=== PATIENT | female | born 2000 | race Hispanic/Latino ===

== ENCOUNTER 2019-10-26 19:43 | Emergency (ER) | payer OTHER ==
[~2019-10-26] VITALS: Ht 165.1 cm; Wt 96.2 kg
--- OUTSIDE RECORDS SUMMARY | 2019-10-26 19:46 | XMS REPORT ---
Author Author Admin, [place] Organization [facility] Address [address] [place] [address] Phone Allergies, Adverse Reactions, Alerts Allergy Name Reaction Description Start Date Severity Status Provider No Known Allergies Adela Manjeet CORN PICKER Conditions or Problems Problem Name Problem Code Onset Date Status Entry Date Provider Comment Standard Description Annotate Screening visit for sexually trans dis V74.5 Active Leilani Moncada MD Screening examination for venereal disease annually - summer Elevated hemoglobin 790.99 Active Leilani Moncada MD Other nonspecific findings on examination of blood on T - following Acne vulgaris, facial, mild 706.1 Active Leilani Moncada MD Other acne retin a Dietary surveillance/counseling V65.3 Active Leilani Moncada MD Dietary surveillance and counseling Exercise counseling V65.41 Active Leilani Moncada MD Exercise counseling Vitamin D deficiency 268.9 Active Leilani Moncada MD Unspecified vitamin D deficiency 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 Leilani Moncada MD Body Mass Index, pediatric, greater than or equal to 95th percentile for age Disorder, 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 Leilani Moncada MD Unspecified endocrine disorder transmale Weight gain, abnormal 783.1 Active Leilani Moncada MD Abnormal weight gain DEPRESSIVE DISORDER, MAJOR, SINGLE EPISODE, MILD Active Lavern SHABAZZW-S Major depressive disorder, single episode, mild degree GENDER DYSPHORIA, ADOLESCENTS AND ADULTS Active 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 Costochondritis, left ICD-733.6 Inactive Leilani Moncada MD Screening visit for sexually trans dis V74.5 Inactive Leilani Moncada MD Screening examination for venereal disease Screening visit for sexually trans dis ICD-V74.5 Inactive Leilani Moncada MD Vaccination ICD-V05.9 Inactive Leilani Moncada MD Immunization due ICD-V15.83 Inactive Leilani Moncada MD Costochondritis, left 733.6 Resolved 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 V05.9 Resolved Leilani Moncada MD Need for prophylactic vaccination and inoculation against unspecified single disease Immunization due V15.83 Resolved Leilani Moncada MD Personal history of underimmunization status Medication List Medication Instructions Start Date Stop Date Generic Name NDC Status Provider Patient Instruction ADAPALENE 0.1 % EXTERNAL CREAM small green Pea to face nightly ADAPALENE 03797512099 Active Leilani Moncada MD Active TESTOSTERONE CYPIONATE 200 MG/ML INTRAMUSCULAR SOLUTION 0.4cc SQ weekly TESTOSTERONE CYPIONATE 00880555863 Active Leilani Moncada MD Active EPIDUO 0.1-2.5 % EXTERNAL GEL to clean dry face nightly EPIDUO 0.1-2.5 % EXTERNAL GEL 386995 ADAPALENE-BENZOYL PEROXIDE Inactive BENZACLIN WITH PUMP 1-5 % EXTERNAL GEL apply to clean face every morning BENZACLIN WITH PUMP 1-5 % EXTERNAL GEL 273735 CLINDAMYCIN PHOS-BENZOYL PEROX Inactive VITAMIN D (ERGOCALCIFEROL) 42500 UNIT ORAL CAPSULE One tablet by mouth once per week for 12 weeks VITAMIN D (ERGOCALCIFEROL) 59755 UNIT ORAL CAPSULE 0715527 ERGOCALCIFEROL Inactive RETIN-A 0.025 % EXTERNAL GEL to clean dry face nightly RETIN-A 0.025 % EXTERNAL GEL 841308 TRETINOIN Inactive EPIDUO 0.1-2.5 % EXTERNAL GEL to clean dry face nightly ADAPALENE-BENZOYL PEROXIDE 84561185777 No Longer Active Leilani Moncada MD Active BENZACLIN WITH PUMP 1-5 % EXTERNAL GEL apply to clean face every morning CLINDAMYCIN PHOS-BENZOYL PEROX 71304995399 No Longer Active Leilani Moncada MD Active VITAMIN D (ERGOCALCIFEROL) 16087 UNIT ORAL CAPSULE One tablet by mouth once per week for 12 weeks ERGOCALCIFEROL 97741613237 No Longer Active Leilani Moncada MD Active RETIN-A 0.025 % EXTERNAL GEL to clean dry face nightly TRETINOIN 05675177037 No Longer Active Leilani Moncada MD Active Immunizations Vaccine Administration Date Value Standard Description influenza immunization (Flu Vax) has been administered given influenza virus vaccine, unspecified formulation influenza immunization (Flu Vax) has been administered given influenza virus vaccine, unspecified formulation influenza immunization (Flu Vax) has been administered transcribed from official record influenza virus vaccine, unspecified formulation meningococcal polysaccharide conjugate vaccine (MCV4) #2 transcribed from official record meningococcal vaccine, unspecified formulation Human Papillomavirus vaccine (Gardasil) #3, (HPV #3) transcribed from official record human papilloma virus vaccine, quadrivalent Human Papillomavirus vaccine (Gardasil) #3, (HPV #3) Drug Name Unknown human papilloma virus vaccine, quadrivalent Tetanus toxoid, reduced diphtheria toxoid and acellular Pertussis vaccine, absorbed (TdaP) given transcribed from official record tetanus toxoid, reduced diphtheria toxoid, and acellular pertussis vaccine, adsorbed Human Papillomavirus vaccine (Gardasil) #2, (HPV #2) transcribed from official record human papilloma virus vaccine, quadrivalent Human Papillomavirus vaccine (Gardasil) #2, (HPV #2) Drug Name Unknown human papilloma virus vaccine, quadrivalent chicken pox immunization #2 transcribed from official record varicella virus vaccine meningococcal polysaccharide conjugate vaccine (MCV4) transcribed from official record meningococcal vaccine, unspecified formulation Human Papilloma Virus Vaccine (Gardasil) (HPV 1) Administration Date transcribed from official record human papilloma virus vaccine, quadrivalent chicken pox immunization #1 transcribed from official record varicella virus vaccine DTaP (Diphtheria, Tetanus, and acellular Pertussis) immunization #5 transcribed from official record diphtheria, tetanus toxoids and acellular pertussis vaccine MMR (measles, mumps, rubella) virus immunization #2 transcribed from official record polio vaccine #4 transcribed from official record poliovirus vaccine, inactivated hepatitis A immunization #2 transcribed from official record hepatitis A vaccine, unspecified formulation DTaP (Diphtheria, Tetanus, and acellular Pertussis) immunization #4 transcribed from official record diphtheria, tetanus toxoids and acellular pertussis vaccine hepatitis A immunization #1 transcribed from official record hepatitis A vaccine, unspecified formulation hepatitis B vaccine #3 transcribed from official record hepatitis B vaccine, unspecified formulation hepatitis B vaccine #2 given transcribed from official record hepatitis B vaccine, unspecified formulation DTaP (Diphtheria, Tetanus, and acellular Pertussis) immunization #3 transcribed from official record diphtheria, tetanus toxoids and acellular pertussis vaccine Hemophilus influenza B immunization #4 transcribed from official record Haemophilus influenzae type b vaccine, conjugate unspecified formulation MMR (measles, mumps, rubella) virus immunization #1 transcribed from official record DTaP (Diphtheria, Tetanus, and acellular Pertussis) immunization #2 transcribed from official record diphtheria, tetanus toxoids and acellular pertussis vaccine Hemophilus influenza B immunization #3 transcribed from official record Haemophilus influenzae type b vaccine, conjugate unspecified formulation hepatitis B vaccine #1 given transcribed from official record hepatitis B vaccine, unspecified formulation polio vaccine #3 transcribed from official record poliovirus vaccine, inactivated DTaP (Diphtheria, Tetanus, and acellular Pertussis) immunization #1 transcribed from official record diphtheria, tetanus toxoids and acellular pertussis vaccine Hemophilus influenza B immunization #2 transcribed from official record Haemophilus influenzae type b vaccine, conjugate unspecified formulation polio vaccine #2 transcribed from official record poliovirus vaccine, inactivated Hemophilus influenza B immunization #1 transcribed from official record Haemophilus influenzae type b vaccine, conjugate unspecified formulation polio vaccine #1 transcribed from official record poliovirus vaccine, inactivated Vital Signs Date Name Value Unit Range Description blood pressure, diastolic 63 mm[Hg] BP kwong blood pressure, systolic 107 mm[Hg] BP sys height E&M 63.27 [in_us] Bdy height pulse rate E&M 67 /min Heart rate temperature E&M 99.2 [degF] Body temperature weight E&M 197.34 [lb_av] Weight Measured blood pressure, diastolic 62 mm[Hg] BP kwong blood pressure, systolic 113 mm[Hg] BP sys height E&M 62.91 [in_us] Bdy height pulse rate E&M 69 /min Heart rate temperature E&M 98.2 [degF] Body temperature weight E&M 171.60 [lb_av] Weight Measured Diagnostic Results Date Name Value Unit Range Description Lab Report: TSH+Free T4, CBC With Differential/Platelet, Comp. Metabolic ... - Chemistry thyroid stimulating hormone, serum 1.520 u[iU]/mL 0.450-4.500 Lab Report: Comp. Metabolic Panel (14), CBC, Platelet, No Differential, ... - Chemistry very low density lipoproteins 15 mg/dL 5-40 testosterone, total 339 ng/dL chloride, serum 102 mmol/L 96-106 urea nitrogen, blood 11 mg/dL 6-20 Lab Report: Comp. Metabolic Panel (14), CBC, Platelet, No Differential, ... - Hematology mean corpuscular hemoglobin concentration, RBC 32.6 G/DL % 31.5-35.7 erythrocyte (RBC) count 4.95 X10E6/UL 10*6/mm3 3.77-5.28 Lab Report: RPR, Rfx Qn RPR/Confirm TP, Panel [id number], HCV Antibody - Serology hepatitis C antibody, serum <0.1 0.0-0.9 Lab Report: CBC With Differential/Platelet, RPR, Rfx Qn RPR/Confirm TP, ... - Chemistry Absolute Neutrophils 3.4 X10E3/UL 10*3/uL 1.4-7.0 Lab Report: Comp. Metabolic Panel (14), CBC, Platelet, No Differential, ... - Chemistry LDL cholesterol, serum 75 mg/dL 0-109 urea nitrogen/creatinine ratio, serum 14 9-23 Lab Report: Comp. Metabolic Panel (14), CBC, Platelet, No Differential, ... 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 Metabolic Panel (14), CBC, Platelet, No Differential, ... - Chemistry HDL cholesterol, serum 57 mg/dL >39 Lab Report: CBC With Differential/Platelet, RPR, Rfx Qn RPR/Confirm TP, ... - Hematology monocytes as percent of blood leukocytes 8 % Not Estab. Lab Report: Comp. Metabolic Panel (14), CBC, Platelet, No Differential, ... - Chemistry creatinine, serum 0.81 mg/dL 0.57-1.00 albumin/globulin ratio, serum 2.0 1.2-2.2 cholesterol, serum 147 mg/dL 977-253 9591/06/15 bilirubin, serum, total 0.5 mg/dL 0.0-1.2 Lab Report: CBC With Differential/Platelet, RPR, Rfx Qn RPR/Confirm TP, ... - Hematology Eosinophil Absolute Count 0.1 X10E3/UL 10*3/uL 0.0-0.4 Lab Report: Chlamydia/GC Amplification, Ct/GC LIZBETH, Pharyngeal - Lab chlamydia DNA probe Negative Negative Lab Report: Comp. Metabolic Panel (14), CBC, Platelet, No Differential, ... - Chemistry aspartate aminotransferase (SGOT), serum 16 U/L 0-40 Lab Report: Comp. Metabolic Panel (14), CBC, Platelet, No Differential, ... - Hematology red blood cell distribution width 13.6 % 12.3-15.4 leukocyte count, blood 5.6 X10E3/UL 10*3/mm3 3.4-10.8 Lab Report: Comp. Metabolic Panel (14), CBC, Platelet, No Differential, ... - Chemistry potassium, serum 4.7 mmol/L 3.5-5.2 Lab Report: Chlamydia/GC Amplification, Ct/GC LIZBETH, Pharyngeal - Microbiology Neisseria gonorrhoeae, throat culture Negative Negative Lab Report: Comp. Metabolic Panel (14), CBC, Platelet, No Differential, ... - Chemistry albumin, serum 4.7 g/dL 3.5-5.5 Lab Report: CBC With Differential/Platelet, RPR, Rfx Qn RPR/Confirm TP, ... - Chemistry immature granulocytes, percentage of total cells, blood 0 % Not Estab. Lab Report: CBC With Differential/Platelet, RPR, Rfx Qn RPR/Confirm TP, ... - Hematology lymphocyte count, blood, automated 1.9 X10E3/UL 10*3/mm3 0.7-3.1 Lab Report: Chlamydia/GC Amplification, Ct/GC LIZBETH, Pharyngeal - Microbiology Neisseria gonorrhoeae DNA probe Negative Negative Lab Report: Comp. Metabolic Panel (14), CBC, Platelet, No Differential, ... - Hematology hematocrit, blood 48.1 % 34.0-46.6 Lab Report: Comp. Metabolic Panel (14), CBC, Platelet, No Differential, ... - Chemistry sodium, serum 143 mmol/L 134-144 Lab Report: CBC With Differential/Platelet, RPR, Rfx Qn RPR/Confirm TP, ... - Hematology neutrophils as percent of blood leukocytes 58 % Not Estab. basophils as percent of blood leukocytes 1 % Not Estab. Lab Report: RPR, Rfx Qn RPR/Confirm TP, Panel [id number], HCV Antibody - Serology rapid plasma reagin antibody, serum Non Reactive Non Reactive Lab Report: Comp. Metabolic Panel (14), CBC, Platelet, No Differential, ... - Chemistry carbon dioxide, venous blood 28 mmol/L 20-29 triglyceride, serum, fasting 73 mg/dL 0-89 calcium, serum 9.4 mg/dL 8.7-10.2 alanine aminotransferase (SGPT), serum 10 U/L 0-32 Lab Report: Comp. Metabolic Panel (14), CBC, Platelet, No Differential, ... - Hematology mean corpuscular hemoglobin, RBC 31.7 pg 26.6-33.0 Lab Report: Comp. Metabolic Panel (14), CBC, Platelet, No Differential, ... - Chemistry protein, total, serum 7.1 g/dL 6.0-8.5 alkaline phosphatase, serum 64 U/L 39-117 Lab Report: Comp. Metabolic Panel (14), CBC, Platelet, No Differential, ... - Hematology hemoglobin, blood 15.7 g/dL 11.1-15.9 Lab Report: CBC With Differential/Platelet, RPR, Rfx Qn RPR/Confirm TP, ... - Hematology lymphocytes as percent of blood leukocytes 32 % Not Estab. Lab Report: TSH+Free T4, CBC With Differential/Platelet, Comp. Metabolic ... - Chemistry hemoglobin A1C, blood, as % of total hemoglobin 5.3 % 4.8-5.6 Lab Report: Comp. Metabolic Panel (14), CBC, Platelet, No Differential, ... - Genetics/fertility eGFR if 122 mL/min/1.73m2 >59 Lab Report: CBC With Differential/Platelet, RPR, Rfx Qn RPR/Confirm TP, ... - Hematology basophil count, absolute 0.0 x10E3/uL 0.0-0.2 Lab Report: TSH+Free T4, CBC With Differential/Platelet, Comp. Metabolic ... - Chemistry thyroxine, serum, free 1.00 ng/dL 0.93-1.60 Lab Report: Comp. Metabolic Panel (14), CBC, Platelet, No Differential, ... - Chemistry globulin, serum 2.4 1.5-4.5 Estimated Glomerular Filtration Rate (calc) 106 mL/min/1.73m2 >59 Lab Report: Testosterone, Serum, Vitamin D, 25-Hydroxy - Chemistry vitamin D 25-hydroxy, serum 30.7 ng/mL 30.0-100.0 Lab Report: TSH+Free T4, CBC With Differential/Platelet, Comp. Metabolic ... - Chemistry testosterone, serum, free 2.8 pg/mL Not Estab. Lab Report: CBC With Differential/Platelet, RPR, Rfx Qn RPR/Confirm TP, ... - Hematology eosinophils as percent of blood leukocytes 1 % Not Estab. Lab Report: Comp. Metabolic Panel (14), CBC, Platelet, No Differential, ... - Chemistry blood glucose, random 94 mg/dL 65-99 Lab Report: CBC With Differential/Platelet, RPR, Rfx Qn RPR/Confirm TP, ... - Hematology monocyte count, blood, automated 0.5 X10E3/UL 10*3/uL 0.1-0.9 Lab Report: Comp. Metabolic Panel (14), CBC, Platelet, No Differential, ... - Hematology platelet count 244 X10E3/UL 10*3/mm3 150-450 Encounters Date Encounter Provider Code Facility 17:09:17 CDT Est Patient Detailed - [id number] Leilani Moncada MD CPT-38343 [facility] 16:07:26 CDT Est Patient Detailed - [id number] Leilani Moncada MD CPT-84411 [facility] 11:41:08 CDT Est Patient Detailed - [id number] Leilani Moncada MD CPT-78809 [facility] 19:09:27 CDT Est Patient Comprehensive-[id number] Leilani Moncada MD CPT-60741 [facility] 13:36:15 PAYROLL ADMINISTRATOR Est Patient Detailed - [id number] Leilani Moncada MD CPT-74958 [facility] 09:27:01 CDT Est Patient Detailed - [id number] Leilani Moncada MD CPT-96569 [facility] 17:42:39 PAYROLL ADMINISTRATOR Est Patient Detailed - [id number] Leilani Moncada MD CPT-16932 [facility] 16:57:44 PAYROLL ADMINISTRATOR Est Patient Detailed - [id number] Leilani Moncada MD CPT-41550 [facility] 11:55:00 CDT Est Patient Comprehensive-[id number] Leilani Moncada MD CPT-70618 [facility] 08:46:50 CDT New Patient Complex - [id number] Leilani Moncada MD CPT-88832 [facility] Procedures Code Procedure Name Date Entry Date Standard Description CPT-97343 Venipuncture 13:09:51 CDT CPT-78524 BLOOD COUNT HEMOGLOBIN 11:41:06 CDT CPT-59190 INFLUENZA VACCINE QUADRIVALENT 3 YRS PLUS IM 13:36:17 PAYROLL ADMINISTRATOR CPT-73170 INFLUENZA VACCINE QUADRIVALENT 3 YRS PLUS IM 13:36:17 PAYROLL ADMINISTRATOR CPT-46603 INFLUENZA VACCINE QUADRIVALENT 3 YRS PLUS IM 16:59:03 PAYROLL ADMINISTRATOR CPT-85809 IM or SQ Injection 11:56:39 CDT CPT-77009 Psychotherapy 30 (16-37*) min - 30949 (with patient and/or family member) 16:09:05 CDT CPT-54770 Psychotherapy 45 (38-52*) min - 72509 (with patient and/or family member) 14:08:43 CDT [facility]-79009 Diagnostic evaluation (no medical) - 59256 14:38:44 CDT
--- OUTSIDE RECORDS SUMMARY | 2019-10-26 19:46 | XMS REPORT ---
Author Author Admin, [place] Organization Unknown Address Unknown Phone Unavailable PROBLEMS Condition Status Date Provider Notes Depressed mood active Leilani Moncada Flu vaccine active Leilani Moncada Screening visit for sexually trans dis active Leilani Moncada annually - summer Costochondritis, left completed - Leilani Moncada Screening visit for sexually trans dis completed - Leilani Moncada Elevated hemoglobin active Leilani Moncada on T - following Vaccination completed - Leilani Moncada Acne vulgaris, facial, mild active Leilani Moncada retin a Dietary surveillance/counseling active Leilani Moncada Exercise counseling active Leilani Moncada Immunization due completed - Leilani Moncada Vitamin D deficiency active Leilani Moncada BMI=> 95%ile for age active Leilani Moncada Weight gain, abnormal active Leilani Moncada Disorder, 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, ADOLESCENTS AND ADULTS active Lavern Mejia DEPRESSIVE DISORDER, MAJOR, SINGLE EPISODE, MILD active Lavern Mejia ENCOUNTERS Date Type Provider Location Encounter Diagnosis - Ambulatory Encounter Leilani Moncada [facility] Depressed mood - Ambulatory Encounter Leilani Moncada [facility] UNK - Ambulatory Encounter Rubina Robertson [facility] UNK - Ambulatory Encounter Leilani Moncada [facility] UNK - Ambulatory Encounter Leilani Amandayulissa Mckenna Christine [facility] Flu vaccine - Ambulatory Encounter Leilani [place]cada [facility] UNK - Ambulatory Encounter Leilani Garvey [facility] UNK - Ambulatory Encounter Rubina Robertson [facility] UNK - Ambulatory Encounter Leilani Moncada [facility] UNK - Ambulatory Encounter Leilani Moncada [facility] UNK - Ambulatory Encounter Leilani Moncada [facility] UNK - Ambulatory Encounter Leilani Moncada [facility] UNK - Ambulatory Encounter Daisy Garvey [facility] UNK - Ambulatory Encounter Leilani Moncada [facility] UNK - Ambulatory Encounter Leilani Burroughs [facility] Screening visit for sexually trans dis - Ambulatory Encounter Leilani Moncada [facility] Adult Medicine UNK - Ambulatory Encounter Leilani Moncada [facility] Adult Medicine UNK - Ambulatory Encounter Deonna Bryan [facility] Behavioral Health UNK - Ambulatory Encounter Leilani Garvey [facility] UNK - Ambulatory Encounter Leilani Moncada [facility] UNK - Ambulatory Encounter Leilani Moncada Rubina Robertson [facility] VaccinationCostochondritis, left - Ambulatory Encounter Leeann Fernandez [facility] UNK - Ambulatory Encounter Leilani Moncada [facility] UNK - Ambulatory Encounter Leilani Moncada [facility] UNK - Ambulatory Encounter Leilani Moncada [facility] UNK - Ambulatory Encounter Leilani Moncada [facility] UNK - Ambulatory Encounter Leilani Moncada [facility] UNK - Ambulatory Encounter Leilani Moncada [facility] UNK - Ambulatory Encounter Leilani Moncada [facility] UNK - Ambulatory Encounter Leilani Moncada [facility] UNK - Ambulatory Encounter Leilani Moncada [facility] UNK - [facility] Ambulatory Encounter Leilani Moncada [facility] UNK - Ambulatory Encounter Leilani Moncada [facility] UNK - Ambulatory [facility] - Ambulatory Encounter [facility] UNK - Ambulatory Encounter Leilani Moncada [facility] UNK - Ambulatory Encounter Leilani Garvey [facility] Costochondritis, left - Ambulatory Encounter Leeann Fernandez [facility] Adult Medicine UNK - Ambulatory Encounter Daisy Fernandez [facility] UNK - Ambulatory Encounter Deepak Livingston [facility] Air [employer]ic UNK - Ambulatory Encounter Leilani Livingston [facility] UNK - Ambulatory Encounter Daisy Otero [facility] UNK - Ambulatory Encounter Rubina Robertson [facility] UNK - Ambulatory Encounter Leilani Moncada [facility] Adult Medicine UNK - Ambulatory Encounter Leilani Moncada [facility] Adult Medicine UNK - [facility] Adult Medicine UNK - Ambulatory Encounter Leilani Valadez Rubina Marcelo [facility] Adult Medicine UNK - Ambulatory Encounter Courtney Ludwig [facility] Adult Medicine UNK - Ambulatory Encounter Courtney Ludwig [facility] Adult Medicine UNK - Ambulatory Encounter Leilani Moncada [facility] UNK - Ambulatory Encounter Leilani Burroughs [facility] Elevated hemoglobinScreening visit for sexually trans dis - Ambulatory Encounter Leeann Fernandez [facility] Adult Medicine UNK - Ambulatory Encounter Leilani Moncada [facility] UNK - Ambulatory Encounter Leilani Moncada [facility] UNK - Ambulatory Encounter Leilani Moncada [facility] UNK - Ambulatory Encounter Leilani Moncada [facility] UNK - Ambulatory Encounter Leilani Moncada [facility] UNK - Ambulatory Encounter Leilani Moncada [facility] UNK - Ambulatory Encounter Kristin Francois [facility] UNK - Ambulatory Encounter Kristin Francois [facility] UNK - Ambulatory Encounter Kristin Francois [facility] UNK - Ambulatory Encounter Leilani Moncada [facility] UNK - Ambulatory Encounter Leilani Moncada [facility] UNK - Ambulatory Encounter Leilani Moncada [facility] UNK - Ambulatory Encounter Leilani Ramírez Kristin Francois Yessina Derrell Kwon Chica [facility] Vaccination - Ambulatory Encounter Leeann Fernandez [facility] UNK - Ambulatory Encounter Leilani Moncada [facility] UNK - Ambulatory Encounter Leilani Moncada [facility] UNK - Ambulatory Encounter Leilani Moncada [facility] UNK - Ambulatory Encounter Leilani Cespedes Marcelo [facility] UNK - Ambulatory Encounter Leilani Moncada [facility] UNK - Ambulatory Encounter Daisy Garvey [facility] UNK - Ambulatory Encounter Leilani Moncada [facility] UNK - Ambulatory Encounter Leilani Hearti Rodrigez [facility] Exercise counselingDietary surveillance/counselingAcne vulgaris, facial, mild - Ambulatory Encounter Leilani Moncada [facility] UNK - Ambulatory Encounter Leilani Moncada [facility] UNK - Ambulatory Encounter Leilani Moncada [facility] UNK - Ambulatory Encounter Leilani Moncada [facility] UNK - Ambulatory Encounter Leilani Moncada [facility] UNK - Ambulatory Encounter Leilani Webb [facility] Immunization due - Ambulatory Encounter Leilani Moncada [facility] UNK - Ambulatory Encounter Leilani Moncada [facility] UNK - Ambulatory Encounter Leilani Moncada [facility] UNK - Ambulatory Encounter Leilani Moncada [facility] UNK - Ambulatory Encounter Steve Goode [facility] UNK - Ambulatory Encounter Steve Goode [facility] UNK - Ambulatory Encounter Steve Goode [facility] Adult Medicine UNK - Ambulatory Encounter Yanet Nash [facility] UNK - Ambulatory Encounter Leilani Robertson [facility] UNK - Ambulatory Encounter Leilani Robertson [facility] Immunization due - Ambulatory Encounter Leilani Moncada [facility] Adult Medicine UNK - Ambulatory Encounter Leilani Moncada [employer] [facility] Adult Medicine UNK - Ambulatory Encounter Lola Leonardorix [facility] UNK - Ambulatory Encounter Lola Leonardorix [facility] UNK - Ambulatory Encounter Lola Leonardorix [facility] UNK - Ambulatory Encounter Lola Leonardorix [facility] UNK - Ambulatory Encounter Lola Leonardorix [facility] UNK - Ambulatory Encounter Lola Leonardorix [facility] UNK - Ambulatory Encounter Lola Leonardorix [facility] UNK - Ambulatory Encounter Lola Chou [facility] UNK - Ambulatory Encounter Leilani Moncada [facility] UNK - Ambulatory Encounter Leilani Garvey [facility] Vitamin D deficiency - Ambulatory Encounter Leilani Moncada [facility] UNK - Ambulatory Encounter Leilani Garvey [facility] UNK - Ambulatory Encounter Leilani Valadez [facility] Adult Medicine UNK - Ambulatory Encounter Daisy Garvey [facility] UNK - Ambulatory Encounter Leilani Monte [facility] Disorder, endocrine NOStWeight gain, abnormalBMI=> 95%ile for age - Ambulatory Encounter Steve Goode [facility] Adult Medicine UNK - Ambulatory Encounter Steve Goode [facility] Adult Medicine UNK - Ambulatory Encounter Daisyselin Garvey [facility] UNK - Ambulatory Encounter Lola Chou [facility] UNK - Ambulatory Encounter Lavern Chou [facility] Behavioral Health UNK - Ambulatory Encounter Lavern Barone [facility] UNK - Ambulatory Encounter Lola Chou [facility] UNK - Ambulatory Encounter Lavern Mejia [facility] Behavioral Health UNK - Ambulatory Encounter Lola Chou [facility] UNK - Ambulatory Encounter Lola Chou [facility] Behavioral Health UNK - Ambulatory Encounter Daisy Mcgowanvez [facility] UNK - Ambulatory Encounter Lavern Mejia [facility] UNK - Ambulatory Encounter Lavern Chou [facility] UNK - Ambulatory Encounter Anila Cerda [facility] Health UNK - Ambulatory Encounter Lavern Mcdonough Webb Perezraina Hunter [facility] DEPRESSIVE DISORDER, MAJOR, SINGLE EPISODE, MILDGENDER DYSPHORIA, ADOLESCENTS AND ADULTS - Ambulatory Encounter Kizzy Barone [facility] UNK VITAL SIGNS Date Observation Value Provider temperature E&M 98.1 [degF] Rubina Robertson " blood pressure, diastolic 78 mm[Hg] Rubina Robertson " blood pressure, systolic 134 mm[Hg] Rubina Robertson " pulse rate E&M 93 /min Rubina Robertson " oxygen saturation, oximetry 94 % Rubina Robertson " height in centimeters E&M 160.5 cm Rubina Robertson " height E&M 63.19 [in_i] Rubina Robertson " weight in kilograms E&M 95.9 kg Rubina Robertson " weight E&M 210.98 lbs. Rubina Robertson " method used to obtain blood pressure automatic Rubina Robertson " Blood Pressure Position 01 sitting Rubina Robertson " blood pressure, site #1 left arm Rubina Robertson " temperature site oral Rubina Robertson oxygen saturation, oximetry 98 % Daisy Garvey " method used to obtain blood pressure automatic Daisy Garvey " Blood Pressure Position 01 sitting Daisy Garvey " blood pressure, site #1 left arm Daisy Garvey " blood pressure, diastolic 63 mm[Hg] Daisy Garvey " blood pressure, systolic 107 mm[Hg] Daisy Garvey " pulse rate E&M 67 /min Daisy Garvey " temperature E&M 99.2 [degF] Daisy Garvey " height percentile 34 Daisy Garevy " height in centimeters E&M 160.7 cm Daisy Garvey " height E&M 63.27 [in_i] Daisy Mcgowanvez " weight percentile 97 Daisy Mcgowanvez " weight in kilograms E&M 89.7 kg Daisy Garvey " weight E&M 197.34 lbs. Daisy Mcgowanvez blood pressure, diastolic 62 mm[Hg] Rubina Robertson " blood pressure, systolic 113 mm[Hg] Rubina Robertson " oxygen saturation, oximetry 97 % Rubina Robertson " pulse rate E&M 69 /min Rubina Robertson " temperature E&M 98.2 [degF] Rubina Robertson " weight percentile 93 Rubina Robertson " weight in kilograms E&M 78 kg Rubina Robertson " weight E&M 171.60 lbs. Rubina Robertson " height percentile 30 Rubina Robertson " height in centimeters E&M 159.8 cm Rubina Robertson " height E&M 62.91 [in_i] Rubina Robertson " method used to obtain blood pressure automatic Rubina Robertson " Blood Pressure Position 01 sitting Rubina Robertson " blood pressure, site #1 left arm Rubina Robertson " temperature site oral Rubina Robertson BP diastolic #1 85 mm[Hg] Leilani Moncada " BP systolic #1 123 mm[Hg] Leilani Moncada " blood pressure, diastolic, second observation 76 mm[Hg] Leilani Moncada " blood pressure, systolic, second observation 104 mm[Hg] Leilani Moncada " blood pressure, diastolic 76 mm[Hg] Leilani Moncada " blood pressure, systolic 104 mm[Hg] Leilani Moncada " oxygen saturation, oximetry 98 % Daisy Garvey " pulse rate E&M 105 /min Daisy Garvey " temperature E&M 99.6 [degF] Daisy Garvey " weight percentile 97 Daisy Garvey " weight in kilograms E&M 89.9 kg Daisy Garvey " weight E&M 197.78 lbs. Daisy Guru " height percentile 31 Daisy Garvey " height in centimeters E&M 160 cm Daisy Garvey " height E&M 62.99 [in_i] Daisy Garvey " temperature site tympanic Daisy Garvey " method used to obtain blood pressure automatic Diasy Garvey " Blood Pressure Position 01 sitting Daisy Guru " blood pressure, site #1 left arm Daisy Garvey oxygen saturation, oximetry 96 % Adela Burroughs " method used to obtain blood pressure automatic Adela Burroughs " Blood Pressure Position 01 sitting Adela Burroughs " blood pressure, site #1 left arm Adela Burroughs " blood pressure, diastolic 79 mm[Hg] Adela Burroughs " blood pressure, systolic 120 mm[Hg] Adela Burroughs " pulse rate E&M 74 /min Adelaluis Burroughs " temperature E&M 98.7 [degF] Adela Burroughs " temperature site oral Adelaluis Burroughs " weight percentile 98 Adela Burroughs " weight in kilograms E&M 98 kg Adela Burroughs " weight E&M 215.60 lbs. Adela Burroughs " height percentile 34 Adela Burroughs " height in centimeters E&M 160.5 cm Adela Burroughs " height E&M 63.19 [in_i] Adelaluis Burroughs oxygen saturation, oximetry 97 % Rubina Robertson " blood pressure, diastolic 76 mm[Hg] Rubina Robertson " blood pressure, systolic 123 mm[Hg] Rubina Robertson " pulse rate E&M 76 /min Rubina Robertson " temperature E&M 97.5 [degF] Rubina Robertson " weight percentile 98 Rubina Robertson " weight in kilograms E&M 90.3 kg Rubina Robertson " weight E&M 198.66 lbs. Rubina Robertson " height percentile 29 Rubina Robertson " height in centimeters E&M 159.5 cm Rubina Robertson " height E&M 62.80 [in_i] Rubina Robertson " method used to obtain blood pressure automatic Rubina Robertson " Blood Pressure Position 01 sitting Rubina Robertson " blood pressure, site #1 left arm Rubina Robertson " temperature site tympanic Rubina Robertson Diastolic BP Classification - Category Normal Rubina Robertson " Diastolic BP Percentile 80 Rubina Robertson " Systolic BP Classification - Category Normal Rubina Robertson " Systolic BP Percentile 75 Rubina Robertson " oxygen saturation, oximetry 98 % Rubina Robertson " blood pressure, diastolic 75 mm[Hg] Rubina Robertson " blood pressure, systolic 118 mm[Hg] Rubina Robertson " respiratory rate E&M 24 /min Rubina Robertson " pulse rate E&M 69 /min Rubina Robertson " temperature E&M 97.6 [degF] Rubina Robertson " weight percentile 98 Rubina Robertson " weight in kilograms E&M 93.5 kg Rubina Robertson " weight E&M 205.70 lbs. Rubina Robertson " height percentile 32 Rubina Robertson " height in centimeters E&M 160.1 cm Rubina Robertson " height E&M 63.03 [in_i] Rubina Robertson " method used to obtain blood pressure automatic Rubina Robertson " Blood Pressure Position 01 sitting Rubina Robertson " blood pressure, site #1 left arm Rubina Robertson " temperature site tympanic Rubina Robertson pulse rate E&M 71 /min Daisy Garvey " temperature E&M 97.9 [degF] Daisy Garvey " blood pressure, diastolic 73 mm[Hg] Daisy Garvey " blood pressure, systolic 109 mm[Hg] Daisy Garvey " weight percentile 99 Daisy Garvey " weight in kilograms E&M 103.4 kg Daisy Garvey " weight E&M 227.48 lbs. Adisy Garvey " height percentile 32 Daisy Garvey " height in centimeters E&M 160 cm Daisy Garvey " height E&M 62.99 [in_i] Daisy Guru " temperature site tympanic Daisy Garvey " method used to obtain blood pressure automatic Daisy Garvey " Blood Pressure Position 01 sitting Daisyselin Mcgowanvez " blood pressure, site #1 left arm Daisyselin Mcgowanvez Diastolic BP Classification - Category Normal Rubina Marcelo " Diastolic BP Percentile 82 Rubina Marcelo " Systolic BP Classification - Category Normal Rubina Marcelo " Systolic BP Percentile 47 Rubina Robertson " pulse rate E&M 65 /min Rubina Robertson " method used to obtain blood pressure automatic Rubina Robertson " Blood Pressure Position 01 sitting Rubinatopher Robertson " blood pressure, site #1 left arm Rubina Marcelo " blood pressure, diastolic 76 mm[Hg] Rubina Robertson " blood pressure, systolic 110 mm[Hg] Rubina Robertson " temperature site tympanic Rubina Robertson " temperature E&M 96.2 [degF] Rubina Marcelo " weight percentile 99 Rubina Marcelo " weight in kilograms E&M 99.7 kg Rubina Robertson " weight E&M 219.34 lbs. Rubina Marcelo " height percentile 31 Rubina Marcelo " height in centimeters E&M 159.8 cm Rubina Robertson " height E&M 62.91 [in_i] Rubina Robertson pulse rate E&M 71 /min Daisy Garvey " blood pressure, diastolic 71 mm[Hg] Daisy Garvey " blood pressure, systolic 107 mm[Hg] Daisy Garvey " temperature E&M 96.6 [degF] Daisy Garvey " weight E&M 190.50 lbs. Daisy Garvey " weight percentile 97 Daisy Garvey " weight in kilograms E&M 86.59 kg Daisy Garvey " height E&M 63 [in_i] Daisy Garvey " height percentile 33 Daisy Garvey " height in centimeters E&M 160.02 cm Daisy Garvey " temperature site tympanic Daisy Garvey " method used to obtain blood pressure automatic Daisy Garvey " Blood Pressure Position 01 sitting Daisy Garvey " blood pressure, site #1 left arm Daisy Garvey pulse rate E&M 69 /min Daisy Garvey " blood pressure, diastolic 68 mm[Hg] Daisy Garvey " blood pressure, systolic 101 mm[Hg] Daisy Garvey " temperature E&M 98 [degF] Daisy Garvey " weight percentile 97 Daisy Garvey " weight in kilograms E&M 84.4 kg Daisy Garvey " weight E&M 185.68 lbs. Daisy Garvey " height percentile 27 Daisy Garvey " height in centimeters E&M 159 cm Daisy Garvey " height E&M 62.60 [in_i] Daisy Garvey " temperature site tympanic Daisy Garvey " method used to obtain blood pressure automatic Daisy Garvey " Blood Pressure Position 01 sitting Daisy Garvey " blood pressure, site #1 left arm Daisy Garvey Allergies No Known Allergy Information REASON FOR REFERRAL No Information Available RESULTS Date Observation Value Provider Reference Range Interpretation Location Neisseria gonorrhoeae, throat culture Negative [facility] Negative " Neisseria gonorrhoeae DNA probe Negative [facility] Negative " chlamydia DNA probe Negative [facility] Negative hepatitis C antibody, serum <0.1 [facility] 0.0-0.9 " HIV-CMIA (Chemiluminescent Microparticle Immuno Assay) Non Reactive [facility] Non Reactive " rapid plasma reagin antibody, serum Non Reactive [facility] Non Reactive testosterone, total 339 ng/dL [facility] " LDL cholesterol, serum 75 mg/dL [facility] 0-109 " very low density lipoproteins 15 mg/dL [facility] 5-40 " HDL cholesterol, serum 57 mg/dL [facility] >39 " triglyceride, serum, fasting 73 mg/dL [facility] 0-89 " cholesterol, serum 147 mg/dL [facility] 100-169 " platelet count 244 X10E3/UL [facility] 150-450 " red blood cell distribution width 13.6 % [facility] 12.3-15.4 " mean corpuscular hemoglobin concentration, RBC 32.6 G/DL [facility] 31.5-35.7 " mean corpuscular hemoglobin, RBC 31.7 pg [facility] 26.6-33.0 " mean corpuscular volume, RBC 97 fL [facility] 79-97 " hematocrit, blood 48.1 % [facility] 34.0-46.6 High " hemoglobin, blood 15.7 g/dL [facility] 11.1-15.9 " erythrocyte (RBC) count 4.95 X10E6/UL [facility] 3.77-5.28 " leukocyte count, blood 5.6 X10E3/UL [facility] 3.4-10.8 " alanine aminotransferase (SGPT), serum 10 1/L [facility] 0-32 " aspartate aminotransferase (SGOT), serum 16 1/L [facility] 0-40 " alkaline phosphatase, serum 64 1/L [facility] 39-117 " bilirubin, serum, total 0.5 mg/dL [facility] 0.0-1.2 " albumin/globulin ratio, serum 2.0 [facility] 1.2-2.2 " globulin, serum 2.4 [facility] 1.5-4.5 " albumin, serum 4.7 g/dL [facility] 3.5-5.5 " protein, total, serum 7.1 g/dL [facility] 6.0-8.5 " calcium, serum 9.4 mg/dL [facility] 8.7-10.2 " carbon dioxide, venous blood 28 mmol/L [facility] 20-29 " chloride, serum 102 mmol/L [facility] 96-106 " potassium, serum 4.7 mmol/L [facility] 3.5-5.2 " sodium, serum 143 mmol/L [facility] 134-144 " urea nitrogen/creatinine ratio, serum 14 [facility] 9-23 " eGFR if 122 mL/min/((173/100).m2) [facility] >59 " Estimated Glomerular Filtration Rate (calc) 106 mL/min/((173/100).m2) [facility] >59 " creatinine, serum 0.81 mg/dL [facility] 0.57-1.00 " urea nitrogen, blood 11 mg/dL [facility] 6-20 " blood glucose, random 94 mg/dL [facility] 65-99 vitamin D 25-hydroxy, serum 30.7 ng/mL [facility] 30.0-100.0 " testosterone, total 271 ng/dL [facility] HIV-CMIA (Chemiluminescent Microparticle Immuno Assay) Non Reactive [facility] Non Reactive " rapid plasma reagin antibody, serum Non Reactive [facility] Non Reactive " immature granulocytes, percentage of total cells, blood 0 % [facility] Not Estab. " basophil count, absolute 0.0 x10E3/uL [facility] 0.0-0.2 " Eosinophil Absolute Count 0.1 X10E3/UL [facility] 0.0-0.4 " monocyte count, blood, automated 0.5 X10E3/UL [facility] 0.1-0.9 " lymphocyte count, blood, automated 1.9 X10E3/UL [facility] 0.7-3.1 " Absolute Neutrophils 3.4 X10E3/UL [facility] 1.4-7.0 " basophils as percent of blood leukocytes 1 % [facility] Not Estab. " eosinophils as percent of blood leukocytes 1 % [facility] Not Estab. " monocytes as percent of blood leukocytes 8 % [facility] Not Estab. " lymphocytes as percent of blood leukocytes 32 % [facility] Not Estab. " neutrophils as percent of blood leukocytes 58 % [facility] Not Estab. " platelet count 229 X10E3/UL [facility] 150-379 " red blood cell distribution width 13.7 % [facility] 12.3-15.4 " mean corpuscular hemoglobin concentration, RBC 33.8 G/DL [facility] 31.5-35.7 " mean corpuscular hemoglobin, RBC 31.0 pg [facility] 26.6-33.0 " mean corpuscular volume, RBC 92 fL [facility] 79-97 " hematocrit, blood 46.7 % [facility] 34.0-46.6 High " hemoglobin, blood 15.8 g/dL [facility] 11.1-15.9 " erythrocyte (RBC) count 5.09 X10E6/UL [facility] 3.77-5.28 " leukocyte count, blood 5.9 X10E3/UL [facility] 3.4-10.8 hematocrit, blood 16.1 % Leilani Antwan Neisseria gonorrhoeae, throat culture Negative [facility] Negative Neisseria gonorrhoeae DNA probe Negative [facility] Negative " chlamydia DNA probe Negative [facility] Negative hematocrit, blood 15.3 % Leilani Antwan vitamin D 25-hydroxy, serum 29.6 ng/mL [facility] 30.0-100.0 Low " testosterone, total 423 ng/dL [facility] vitamin D 25-hydroxy, serum 20.0 ng/mL [facility] 30.0-100.0 Low " testosterone, total 506 ng/dL [facility] " LDL cholesterol, serum 71 mg/dL [facility] 0-109 " very low density lipoproteins 30 mg/dL [facility] 5-40 " HDL cholesterol, serum 48 mg/dL [facility] >39 " triglyceride, serum, fasting 149 mg/dL [facility] 0-89 High " cholesterol, serum 149 mg/dL [facility] 100-169 " platelet count 255 X10E3/UL [facility] 150-379 " red blood cell distribution width 13.2 % [facility] 12.3-15.4 " mean corpuscular hemoglobin concentration, RBC 34.2 G/DL [facility] 31.5-35.7 " mean corpuscular hemoglobin, RBC 30.4 pg [facility] 26.6-33.0 " mean corpuscular volume, RBC 89 fL [facility] 79-97 " hematocrit, blood 45.0 % [facility] 34.0-46.6 " hemoglobin, blood 15.4 g/dL [facility] 11.1-15.9 " erythrocyte (RBC) count 5.07 X10E6/UL [facility] 3.77-5.28 " leukocyte count, blood 8.3 X10E3/UL [facility] 3.4-10.8 " alanine aminotransferase (SGPT), serum 19 1/L [facility] 0-32 " aspartate aminotransferase (SGOT), serum 23 1/L [facility] 0-40 " alkaline phosphatase, serum 94 1/L [facility] 43-101 " bilirubin, serum, total 0.3 mg/dL [facility] 0.0-1.2 " albumin/globulin ratio, serum 1.7 [facility] 1.2-2.2 " globulin, serum 2.7 [facility] 1.5-4.5 " albumin, serum 4.7 g/dL [facility] 3.5-5.5 " protein, total, serum 7.4 g/dL [facility] 6.0-8.5 " calcium, serum 9.6 mg/dL [facility] 8.7-10.2 " carbon dioxide, venous blood 31 mmol/L [facility] 18-29 High " chloride, serum 100 mmol/L [facility] 96-106 " potassium, serum 4.6 mmol/L [facility] 3.5-5.2 " sodium, serum 141 mmol/L [facility] 134-144 " urea nitrogen/creatinine ratio, serum 14 [facility] 9-23 " eGFR if 126 mL/min/((173/100).m2) [facility] >59 " Estimated Glomerular Filtration Rate (calc) 110 mL/min/((173/100).m2) [facility] >59 " creatinine, serum 0.79 mg/dL [facility] 0.57-1.00 " urea nitrogen, blood 11 mg/dL [facility] 6-20 " blood glucose, random 91 mg/dL [facility] 65-99 vitamin D 25-hydroxy, serum 20.2 ng/mL [facility] 30.0-100.0 Low " testosterone, total 520 ng/dL [facility] " LDL cholesterol, serum 61 mg/dL [facility] 0-109 " very low density lipoproteins 21 mg/dL [facility] 5-40 " HDL cholesterol, serum 46 mg/dL [facility] >39 " triglyceride, serum, fasting 104 mg/dL [facility] 0-89 High " cholesterol, serum 128 mg/dL [facility] 100-169 " platelet count 267 X10E3/UL [facility] 150-379 " red blood cell distribution width 14.0 % [facility] 12.3-15.4 " mean corpuscular hemoglobin concentration, RBC 34.0 G/DL [facility] 31.5-35.7 " mean corpuscular hemoglobin, RBC 29.8 pg [facility] 26.6-33.0 " mean corpuscular volume, RBC 88 fL [facility] 79-97 " hematocrit, blood 44.4 % [facility] 34.0-46.6 " hemoglobin, blood 15.1 g/dL [facility] 11.1-15.9 " erythrocyte (RBC) count 5.06 X10E6/UL [facility] 3.77-5.28 " leukocyte count, blood 5.0 X10E3/UL [facility] 3.4-10.8 " alanine aminotransferase (SGPT), serum 21 1/L [facility] 0-24 " aspartate aminotransferase (SGOT), serum 21 1/L [facility] 0-40 " alkaline phosphatase, serum 93 1/L [facility] 45-101 " bilirubin, serum, total 0.7 mg/dL [facility] 0.0-1.2 " albumin/globulin ratio, serum 1.9 [facility] 1.2-2.2 " globulin, serum 2.4 [facility] 1.5-4.5 " albumin, serum 4.6 g/dL [facility] 3.5-5.5 " protein, total, serum 7.0 g/dL [facility] 6.0-8.5 " calcium, serum 9.5 mg/dL [facility] 8.9-10.4 " carbon dioxide, venous blood 22 mmol/L [facility] 18-29 " chloride, serum 101 mmol/L [facility] 96-106 " potassium, serum 4.5 mmol/L [facility] 3.5-5.2 " sodium, serum 140 mmol/L [facility] 134-144 " urea nitrogen/creatinine ratio, serum 8 [facility] 10-22 Low " creatinine, serum 0.78 mg/dL [facility] 0.57-1.00 " urea nitrogen, blood 6 mg/dL [facility] 5-18 " blood glucose, random 89 mg/dL [facility] 65-99 vitamin D 25-hydroxy, serum 17.1 ng/mL [facility] 30.0-100.0 Low " testosterone, total 289 ng/dL [facility] " LDL cholesterol, serum 67 mg/dL [facility] 0-109 " very low density lipoproteins 15 mg/dL [facility] 5-40 " HDL cholesterol, serum 50 mg/dL [facility] >39 " triglyceride, serum, fasting 73 mg/dL [facility] 0-89 " cholesterol, serum 132 mg/dL [facility] 100-169 " platelet count 271 X10E3/UL [facility] 150-379 " red blood cell distribution width 13.8 % [facility] 12.3-15.4 " mean corpuscular hemoglobin concentration, RBC 35.9 G/DL [facility] 31.5-35.7 High " mean corpuscular hemoglobin, RBC 31.2 pg [facility] 26.6-33.0 " mean corpuscular volume, RBC 87 fL [facility] 79-97 " hematocrit, blood 39.5 % [facility] 34.0-46.6 " hemoglobin, blood 14.2 g/dL [facility] 11.1-15.9 " erythrocyte (RBC) count 4.55 X10E6/UL [facility] 3.77-5.28 " leukocyte count, blood 7.3 X10E3/UL [facility] 3.4-10.8 testosterone, total 161 ng/dL [facility] " LDL cholesterol, serum 66 mg/dL [facility] 0-109 " very low density lipoproteins 16 mg/dL [facility] 5-40 " HDL cholesterol, serum 72 mg/dL [facility] >39 " triglyceride, serum, fasting 79 mg/dL [facility] 0-89 " cholesterol, serum 154 mg/dL [facility] 100-169 " platelet count 287 X10E3/UL [facility] 150-379 " red blood cell distribution width 13.3 % [facility] 12.3-15.4 " mean corpuscular hemoglobin concentration, RBC 32.5 G/DL [facility] 31.5-35.7 " mean corpuscular hemoglobin, RBC 30.7 pg [facility] 26.6-33.0 " mean corpuscular volume, RBC 95 fL [facility] 79-97 " hematocrit, blood 48.0 % [facility] 34.0-46.6 High " hemoglobin, blood 15.6 g/dL [facility] 11.1-15.9 " erythrocyte (RBC) count 5.08 X10E6/UL [facility] 3.77-5.28 " leukocyte count, blood 8.2 X10E3/UL [facility] 3.4-10.8 " alanine aminotransferase (SGPT), serum 12 1/L [facility] 0-24 " aspartate aminotransferase (SGOT), serum 18 1/L [facility] 0-40 " alkaline phosphatase, serum 96 1/L [facility] 45-101 " bilirubin, serum, total 0.4 mg/dL [facility] 0.0-1.2 " albumin/globulin ratio, serum 1.9 [facility] 1.1-2.5 " globulin, serum 2.5 [facility] 1.5-4.5 " albumin, serum 4.7 g/dL [facility] 3.5-5.5 " protein, total, serum 7.2 g/dL [facility] 6.0-8.5 " calcium, serum 9.9 mg/dL [facility] 8.9-10.4 " carbon dioxide, venous blood 24 mmol/L [facility] 18-29 " chloride, serum 102 mmol/L [facility] 97-106 " potassium, serum 5.0 mmol/L [facility] 3.5-5.2 " sodium, serum 145 mmol/L [facility] 136-144 High " urea nitrogen/creatinine ratio, serum 15 [facility] 9-25 " creatinine, serum 0.66 mg/dL [facility] 0.57-1.00 " urea nitrogen, blood 10 mg/dL [facility] 5-18 " blood glucose, random 95 mg/dL [facility] 65-99 vitamin D 25-hydroxy, serum 15.5 ng/mL [facility] 30.0-100.0 Low " hemoglobin A1C, blood, as % of total hemoglobin 5.3 % [facility] 4.8-5.6 " testosterone, serum, free 2.8 pg/mL [facility] Not Estab. " testosterone, total 22 ng/dL [facility] " LDL cholesterol, serum 54 mg/dL [facility] 0-109 " very low density lipoproteins 15 mg/dL [facility] 5-40 " HDL cholesterol, serum 66 mg/dL [facility] >39 " triglyceride, serum, fasting 75 mg/dL [facility] 0-89 " cholesterol, serum 135 mg/dL [facility] 100-169 " alanine aminotransferase (SGPT), serum 9 1/L [facility] 0-24 " aspartate aminotransferase (SGOT), serum 14 1/L [facility] 0-40 " alkaline phosphatase, serum 85 1/L [facility] 49-108 " bilirubin, serum, total 0.3 mg/dL [facility] 0.0-1.2 " albumin/globulin ratio, serum 1.8 [facility] 1.1-2.5 " globulin, serum 2.5 [facility] 1.5-4.5 " albumin, serum 4.4 g/dL [facility] 3.5-5.5 " protein, total, serum 6.9 g/dL [facility] 6.0-8.5 " calcium, serum 9.4 mg/dL [facility] 8.9-10.4 " carbon dioxide, venous blood 24 mmol/L [facility] 18-29 " chloride, serum 101 mmol/L [facility] 97-108 " potassium, serum 4.7 mmol/L [facility] 3.5-5.2 " sodium, serum 141 mmol/L [facility] 134-144 " urea nitrogen/creatinine ratio, serum 12 [facility] 9-25 " creatinine, serum 0.57 mg/dL [facility] 0.57-1.00 " urea nitrogen, blood 7 mg/dL [facility] 5-18 " blood glucose, random 87 mg/dL [facility] 65-99 " immature granulocytes, percentage of total cells, blood 0 % [facility] " basophil count, absolute 0.0 x10E3/uL [facility] 0.0-0.3 " Eosinophil Absolute Count 0.1 X10E3/UL [facility] 0.0-0.4 " monocyte count, blood, automated 0.4 X10E3/UL [facility] 0.1-0.9 " lymphocyte count, blood, automated 2.4 X10E3/UL [facility] 0.7-3.1 " Absolute Neutrophils 3.8 X10E3/UL [facility] 1.4-7.0 " basophils as percent of blood leukocytes 0 % [facility] " eosinophils as percent of blood leukocytes 1 % [facility] " monocytes as percent of blood leukocytes 6 % [facility] " lymphocytes as percent of blood leukocytes 35 % [facility] " neutrophils as percent of blood leukocytes 58 % [facility] " platelet count 250 X10E3/UL [facility] 150-379 " red blood cell distribution width 13.0 % [facility] 12.3-15.4 " mean corpuscular hemoglobin concentration, RBC 31.9 G/DL [facility] 31.5-35.7 " mean corpuscular hemoglobin, RBC 30.3 pg [facility] 26.6-33.0 " mean corpuscular volume, RBC 95 fL [facility] 79-97 " hematocrit, blood 43.2 % [facility] 34.0-46.6 " hemoglobin, blood 13.8 g/dL [facility] 11.1-15.9 " erythrocyte (RBC) count 4.56 X10E6/UL [facility] 3.77-5.28 " leukocyte count, blood 6.7 X10E3/UL [facility] 3.4-10.8 " thyroxine, serum, free 1.00 ng/dL [facility] 0.93-1.60 " thyroid stimulating hormone, serum 1.520 u[iU]/mL [facility] 0.450-4.500 HISTORY OF IMMUNIZATIONS Date Vaccine Dose Lot Number Status Fluzone Quadrivalent IM PF 0.5 ML [facility] [address]-71 [employer] 0.5 mL [id number] completed HISTORY OF MEDICATION USE Medication Instructions Dates Provider Comments ADAPALENE 0.1 % EXTERNAL CREAM small green Pea to face nightly Leilani Moncada EPIDUO 0.1-2.5 % EXTERNAL GEL to clean dry face nightly - Leilani Moncada BENZACLIN WITH PUMP 1-5 % EXTERNAL GEL apply to clean face every morning - Leilani Moncada VITAMIN D (ERGOCALCIFEROL) 45140 UNIT ORAL CAPSULE One tablet by mouth once per week for 12 weeks - Leilani Moncada TESTOSTERONE CYPIONATE 200 MG/ML INTRAMUSCULAR SOLUTION 0.4cc SQ weekly Leilani Moncada RETIN-A 0.025 % EXTERNAL GEL to clean dry face nightly - Leilani Moncada SOCIAL HISTORY Date Observation Value Provider social history reviewed E&M reviewed - no changes required Leilani Moncada " sexual orientation Heterosexual Rubina Marcelo " passive cigarette smoke exposure No Rubina Marcelo " smoking status never smoker Rubina Marcelo " Exercise Program Referral T Rubina Marcelo " Weight Management Counseling Provided T Rubina Marcelo " Nutrition intervention T Rubina Marcelo social history reviewed E&M reviewed - no changes required Leilani Moncada " sexual orientation Heterosexual Adela Burroughs " Exercise Program Referral T Adela Burroughs " Weight Management Counseling Provided T Adela Burroughs " Nutrition intervention T Adela Burroughs social history reviewed E&M reviewed - no changes required Leilani Moncada " sexual orientation Heterosexual Rubina Marcelo " passive cigarette smoke exposure No Rubina Marcelo " smoking status never smoker Rubina Marcelo " Exercise Program Referral T Rubina Marcelo " Weight Management Counseling Provided T Rubina Marcelo " Nutrition intervention T Rubina Marcelo social history reviewed E&M reviewed - no changes required Leilani Moncada " sexual orientation Heterosexual Daisy Garvey " is there any chance that you could be ? No Daisy Garvey " smoking status never smoker Daisy Garvey " Exercise Program Referral T Daisy Garvey " Weight Management Counseling Provided T Daisy Garvey " Nutrition intervention T Daisy Garvey time of call 01/29/2018 3:33 PM Ada Otero social history reviewed E&M reviewed - no changes required Leilani Moncada " sexual orientation Heterosexual Adela Burroughs " passive cigarette smoke exposure No Adela Burroughs " smoking status never smoker Adela Burroughs " Exercise Program Referral T Adela Burroughs " Weight Management Counseling Provided T Adela Burroughs " Nutrition intervention T Adela Burroughs social history reviewed E&M reviewed - no changes required Leilani Moncada " sexual orientation Heterosexual Rubina Marcelo " passive cigarette smoke exposure No Rubina Marcelo " smoking status never smoker Rubina Marcelo " Exercise Program Referral T Rubina Marcelo " Weight Management Counseling Provided T Rubina Marcelo " Nutrition intervention T Rubina Marcelo social history reviewed E&M reviewed - no changes required Leilani Moncada " sexual orientation Heterosexual Rubina Marcelo " passive cigarette smoke exposure No Rubina Marcelo " smoking status never smoker Rubina Marcelo " Exercise Program Referral T Rubina Robertson " Weight Management Counseling Provided T Rubina Marcelo " Nutrition intervention T Rubina Marcelo social history reviewed E&M reviewed - no changes required Leilani Moncada " is there any chance that you could be ? No Daisy Garvey " smoking status never smoker Daisy Garvey " Exercise Program Referral T Daisy Garvey " Weight Management Counseling Provided T Daisy Garvey " Nutrition intervention T Daisy Garvey social history reviewed E&M reviewed - no changes required Leilani Moncada " sexual orientation Heterosexual Rubina Robertson " is there any chance that you could be ? No Rubina Robertson " passive cigarette smoke exposure No Rubina Marcelo " smoking status never smoker Rubina Robertson " Exercise Program Referral T Rubina Marcelo " Weight Management Counseling Provided T Rubina Marcelo " Nutrition intervention T Rubina Robertson social history reviewed E&M reviewed - no changes required Leilani Moncada " is there any chance that you could be ? No Daisy Garvey " sexual orientation Heterosexual Daisy Garvey " smoking status never smoker Daisy Garvey " Exercise Program Referral T Daisy Garvey " Weight Management Counseling Provided T Daisy Garvey " Nutrition intervention T Daisy Garvey Ever had sexual intercourse? No Leilani Moncada " sexual orientation Heterosexual Leilani Moncada " drug use, illicit Never Leilani Moncada " alcohol use Never Leilani Moncada " social history reviewed E&M reviewed - no changes required Leilani Moncada " is there any chance that you could be ? No Daisy Garvey " smoking status never smoker Daisy Garvey " Exercise Program Referral T Daisy Garvey " Weight Management Counseling Provided T Daisy Garvey " Nutrition intervention T Daisy Mcgowanvez drug use, illicit Never Lavern Mejia " alcohol use Never Lavern Mejia " smoking status never smoker Lavern Mejia " social history reviewed E&M reviewed today Lavern Mejia " social history E&M Close with mom. Has 2 brothers, 14yo and 4yo. Dad is uninvolved. Parents in 2002. In extended family closest with uncle Johny. All of family aware transgender. Lives with mom and 2 brothers. Mobile home - share room with older brother. [employer] in 10th grade as of 12/25. Grades are all A's/B's. 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 Wants to attend [employer]. Mom is a certified MA. No current partner. Never been sexually active. No involvement with CPS. Lavern Mejia " social history - sexual practice No current partner. Never been sexually active. Lavern Mejia " family support Close with mom. Has 2 brothers, 14yo and 4yo. Dad is uninvolved. Parents in 2002. In extended family closest with uncle Johny. All of family aware transgender. Lavern Mejia " home/family situation, assessment Lives with mom and 2 brothers. Mobile home - share room with older brother. Lavern Mejia FUNCTIONAL STATUS No Information Available MENTAL STATUS Date Observation Value Provider assessment of mood and affect E&M no depression, anxiety, or agitation Leilani Moncada " If any problems checked, how difficult have these problems made it for you to do your work, take care of things at home, or get along with other people (GAD7, question 8) 0 Rubina Robertson " Generalized Anxiety Disorder Questionnaire - Question 7 1 Rubina Robertson " Generalized Anxiety Disorder Questionnaire - Question 6 2 Rubina Robertson " Generalized Anxiety Disorder Questionnaire - Question 5 1 Rubina Robertson " Generalized Anxiety Disorder Questionnaire - Question 4 1 Rubina Robertson " Generalized Anxiety Disorder Questionnaire - Question 3 2 Rubina Robertson " Generalized Anxiety Disorder Questionnaire - Question 2 0 Rubina Robertson " Generalized Anxiety Disorder Questionnaire - Question 1 0 Rubina Robertson assessment of mood and affect E&M no depression, anxiety, or agitation Leilani Moncada " Generalized Anxiety Disorder Questionnaire - Question 2 0 Adela Burroughs " Generalized Anxiety Disorder Questionnaire - Question 1 0 Adela Burroughs assessment of mood and affect E&M no depression, anxiety, or agitation Leilani Moncada " Generalized Anxiety Disorder Questionnaire - Question 2 0 Rubina Robertson " Generalized Anxiety Disorder Questionnaire - Question 1 0 Rubina Robertson Generalized Anxiety Disorder Questionnaire - Question 2 0 Daisy Garvey " Generalized Anxiety Disorder Questionnaire - Question 1 0 Daisy Garvey assessment of mood and affect E&M no depression, anxiety, or agitation Leilani Antwan " Generalized Anxiety Disorder Questionnaire - Question 2 0 Adela Burroughs " Generalized Anxiety Disorder Questionnaire - Question 1 0 Adela Burroughs assessment of mood and affect E&M no depression, anxiety, or agitation Leilani Antwan " Generalized Anxiety Disorder Questionnaire - Question 2 0 Rubina Robertson " Generalized Anxiety Disorder Questionnaire - Question 1 0 Rubina Robertson assessment of mood and affect E&M no depression, anxiety, or agitation Leilani Antwan " Generalized Anxiety Disorder Questionnaire - Question 2 0 Rubina Robertson " Generalized Anxiety Disorder Questionnaire - Question 1 0 Rubina Robertson assessment of judgment and insight E&M intact Leilani Antwan " mental status examination: orientation E&M oriented to time, place, and person Leilani Antwan " assessment of mood and affect E&M no depression, anxiety, or agitation Leilani Antwan " Generalized Anxiety Disorder Questionnaire - Question 2 0 Daisy Garvey " Generalized Anxiety Disorder Questionnaire - Question 1 0 Daisy Garvey assessment of judgment and insight E&M intact Leilani Antwan " assessment of mood and affect E&M no depression, anxiety, or agitation Leilani Antwan " Generalized Anxiety Disorder Questionnaire - Question 2 0 Rubina Robertson " Generalized Anxiety Disorder Questionnaire - Question 1 0 Rubina Robertson Generalized Anxiety Disorder Questionnaire - Question 2 0 Daisy Garvey " Generalized Anxiety Disorder Questionnaire - Question 1 0 Daisy Garvey assessment of judgment and insight E&M intact Leilani Antwan " assessment of mood and affect E&M no depression, anxiety, or agitation Leilani Antwan " Generalized Anxiety Disorder Questionnaire - Question 2 0 Daisy Garvey " Generalized Anxiety Disorder Questionnaire - Question 1 0 Daisy Garvey mental status assessment, judgment age-appropriate Lavernpanfilo Haqre " insight (mental status exam) age-appropriate Lavern Dupeire " Mental Status Exam: intelligence adequate fund of information, intact memory processes, average Lavern Dupeire " hallucinations none Lavern Dupeire " thought content (mental status exam) (E&M) lucid Lavern Dupeire " mental status assessment, process able to abstract, goal-directed, logical Lavern Dupeire " mental status assessment, sensorium alert, attentive, clear Lavern Dupeire " affect (mental status exam) congruent, euthymic, normal intensity, normal range Lavern Dupeire " mood (mental status exam) pleasant Lavern Dupeire " mental status assessment, speech activity normal flow, normal pace, normal pressure, normal rate, normal tone, normal volume, spontaneous Lavern Dupeire " mental status assessment, motor activity normal gait, normal posture Lavern Dupeire " behavior (mental status exam) appropriate, candid, cooperative, good eye contact, polite, responsive Lavern Dupeire " mental appearance (mental status exam) adequate hygiene, appropriate dress, looks like stated age, jensen Thomaseire mental status assessment, judgment age-appropriate Lavern Dupeire " insight (mental status exam) age-appropriate Lavern Dupeire " Mental Status Exam: intelligence adequate fund of information, intact memory processes, average Lavern Dupeire " hallucinations none Lavern Dupeire " thought content (mental status exam) (E&M) lucid Lavern Dupeire " mental status assessment, process able to abstract, goal-directed, logical Lavern Dupeire " mental status assessment, sensorium alert, attentive, clear Lavern Dupeire " affect (mental status exam) congruent, euthymic, normal intensity, normal range Alvern Dupeire " mood (mental status exam) pleasant Lavern Dupeire " mental status assessment, speech activity normal flow, normal pace, normal pressure, normal rate, normal tone, normal volume, spontaneous Lavern Dupeire " mental status assessment, motor activity normal gait, normal posture Lavern Dupeire " behavior (mental status exam) appropriate, candid, cooperative, good eye contact, polite, responsive Lavern Dupeire " mental appearance (mental status exam) adequate hygiene, appropriate dress, looks like stated age, jensen Thomaseire mental status assessment, judgment age-appropriate Lavern Dupeire " insight (mental status exam) age-appropriate Lavern Dupeire " Mental Status Exam: intelligence adequate fund of information, intact memory processes, average Lavern Dupeire " hallucinations none Lavern Dupeire " thought content (mental status exam) (E&M) lucid Lavernpanfilo Haqre " mental status assessment, process able to abstract, goal-directed, logical Lavernpanfilo Haqre " mental status assessment, sensorium alert, attentive, clear Lavernpanfilo Haqre " affect (mental status exam) congruent, normal intensity, normal range Lavernpanfilo Haqre " mood (mental status exam) anxious, pleasant, sad Lavern Haqre " mental status assessment, speech activity normal flow, normal pace, normal pressure, normal rate, normal tone, normal volume, spontaneous Lavernpanfilo Haqre " mental status assessment, motor activity normal gait, normal posture Lavernpanfilo Haqre " behavior (mental status exam) appropriate, candid, cooperative, good eye contact, polite, responsive, tearful Lavern Haqre " mental appearance (mental status exam) adequate hygiene, appropriate dress, looks like stated age, neat Lavernpanfilo Haqre " anxiety worry a lot, irritability, panic attacks Lavernpanfilo Haqre MEDICAL EQUIPMENT No Information Available FAMILY HISTORY No Information Available INSURANCE PROVIDERS No Information Available ADVANCE DIRECTIVES No Information Available TREATMENT PLAN Date Name Vitamin D, 25-Hydroxy Lipid Panel Testosterone, Serum CBC With Differential/Platelet Comp. Metabolic Panel (14) RPR, Rfx Qn RPR/Confirm TP HIV 1/2 ANTIGEN/ANTIBODY, FOURTH GENERATION W/RFL Chlamydia/GC Amplification (Urine) HCV Antibody Ct/GC LIZBETH, Pharyngeal Ct/GC LIZBETH, Pharyngeal Chlamydia/GC Amplification RPR, Rfx Qn RPR/Confirm TP HIV 1/2 ANTIGEN/ANTIBODY, FOURTH GENERATION W/RFL Testosterone, Serum Comp. Metabolic Panel (14) Lipid Panel Complete Blood Count (CBC) Without Differential CBC With Differential/Platelet Vitamin D, 25-Hydroxy Testosterone, Serum Vitamin D, 25-Hydroxy Testosterone, Serum Testosterone, Serum Complete Blood Count (CBC) Without Differential Comp. Metabolic Panel (14) Lipid Panel Vitamin D, 25-Hydroxy Testosterone, Serum Vitamin D, 25-Hydroxy Testosterone, Serum Comp. Metabolic Panel (14) Lipid Panel Complete Blood Count (CBC) Without Differential Testosterone, Serum Lipid Panel Complete Blood Count (CBC) Without Differential Vitamin D, 25-Hydroxy Testosterone, Serum Comp. Metabolic Panel (14) Lipid Panel Complete Blood Count (CBC) Without Differential Vitamin D, 25-Hydroxy TSH Rfx on Abnormal to Free T4 Testosterone,Free and Total Hgb A1c with eAG Estimation CBC With Differential/Platelet Lipid Panel Comp. Metabolic Panel (14) TSH+Free T4 Est Patient Detailed - 62226 First Vx - Ix admin via ID IM or jet injects without counseling by physician Fluzone Quadrivalent IM Prefilled Syringe 0.5 mL (PF) Vaccines Ordered - Print Consent/Declination Forms Integrated Behavioral Health Assessment (IBH) Est Patient Detailed - 04798 Venipuncture Est Patient Detailed - 01868 Est Patient Detailed - 62498 BLOOD COUNT HEMOGLOBIN Air Duct Mechanic Est Patient Comprehensive-43829 Est Patient Detailed - 76712 INFLUENZA VACCINE QUADRIVALENT 3 YRS PLUS IM INFLUENZA VACCINE QUADRIVALENT 3 YRS PLUS IM Air Duct Mechanic Est Patient Detailed - 60664 Behavioral Health - Psychiatry Est Patient Detailed - 49446 INFLUENZA VACCINE QUADRIVALENT 3 YRS PLUS IM Est Patient Detailed - 07441 Case Mgmt Visit, Non-Billable [id number] IM or SQ Injection Est Patient Comprehensive-49225 New Patient Complex - 61794 Air Duct Mechanic Air Duct Mechanic Psychotherapy 30 (16-37*) min - 16225 (with patient and/or family member) Air Duct Mechanic Psychotherapy 45 (38-52*) min - 69895 (with patient and/or family member) Diagnostic evaluation (no medical) - 73834 HISTORY OF PROCEDURES Procedure Date Procedure Name Provider Procedure Notes Status First Vx - Ix admin via ID IM or jet injects without counseling by physician Leilani Moncada completed Fluzone Quadrivalent IM Prefilled Syringe 0.5 mL (PF) Leilani Moncada completed Vaccines Ordered - Print Consent/Declination Forms Leilani Moncada completed Venipuncture Leilani Moncada completed BLOOD COUNT HEMOGLOBIN Leilani Moncada completed Case Mgmt Visit, Non-Billable [id number] Lola José Antonio completed IM or SQ Injection Leilani Moncada pt taught to self inject 0.3cc SQ of testosterone using own supply - injected single dose completed Psychotherapy 30 (16-37*) min - 13823 (with patient and/or family member) Lavern Mejia completed Psychotherapy 45 (38-52*) min - 29781 (with patient and/or family member) Lavern Mejia completed Diagnostic evaluation (no medical) - 57003 Lavern Mejia completed GOALS No Information Available HEALTH CONCERNS No Information Available
--- OUTSIDE RECORDS SUMMARY | 2019-10-26 19:47 | XMS REPORT ---
Author Author Admin, [place] Organization Unknown Address Unknown Phone Unavailable PROBLEMS [...] Encounter Diagnosis - Ambulatory Encounter Leilani Moncada [facility] Depressed mood - Ambulatory Encounter Leilani Moncada [facility] UNK - Ambulatory Encounter Rubina Robertson [facility] UNK - Ambulatory Encounter Leilani Moncada [facility] UNK - Ambulatory Encounter Leilani Amandayulissa Mckenna Christine [facility] Flu vaccine - Ambulatory Encounter Leilani [facility]cada [facility] UNK - Ambulatory Encounter Leilani Garvey [facility] UNK - Ambulatory Encounter Rubina Robertson [facility] UNK - Ambulatory Encounter Leilani Moncada [facility] UNK - Ambulatory Encounter Leilani Moncada [facility] UNK - Ambulatory Encounter Leilani Moncada [facility] [facility] UNK - Ambulatory Encounter Leilani Moncada [facility] UNK - Ambulatory Encounter Daisy Garvey [facility] UNK - Ambulatory Encounter Leilani Moncada [facility] UNK - Ambulatory Encounter Leilani Burroughs [facility] Screening visit for sexually trans dis - Ambulatory Encounter Leilani Moncada [facility] Adult Medicine UNK - Ambulatory Encounter Leilani Moncada [employer] [facility] Adult [facility] UNK - Ambulatory Encounter Deonna Bryan [facility] Behavioral Health UNK - Ambulatory Encounter Leilani Garvey [facility] UNK - Ambulatory Encounter Leilani Moncada [facility] UNK - Ambulatory Encounter Leilani Moncada [...] [facility] - [facility] En[facility] Leilani [facility]cada [employer] [facility] UNK - Ambulatory Encounter Leilani Moncada [employer] [facility] UNK - [facility] - [facility]ulatory Encounter Leilani Moncada [facility] UNK - Ambulatory Encounter Leilani Garvey [facility] Costochondritis, left - Ambulatory Encounter Leeann Fernandez [facility] Adult Medicine UNK - Ambulatory Encounter Daisy Fernandez [facility] UNK - Ambulatory Encounter Deepak Livingston [facility] Economics Consultant UNK - Ambulatory Encounter Leilani Livingston [facility] UNK - Ambulatory Encounter Daisy [facility] UNK - Ambulatory Encounter Rubina Robertson [facility] UNK - Ambulatory Encounter Leilani Moncada [facility] Adult Medicine UNK - Ambulatory Encounter Leilani Moncada [facility] Adult Medicine UNK - [facility] UNK - Ambulatory Encounter Leilani Valadez Rubina Marcelo [facility] Adult Medicine UNK - Ambulatory Encounter Courtney Ludwig [facility] Adult Medicine UNK - Ambulatory Encounter Courtney Ludwig [facility] Adult Medicine UNK - Ambulatory Encounter Leilani Moncada [facility] UNK - Ambulatory Encounter Leilani Burroughs [facility] Elevated hemoglobinScreening visit for sexually trans dis - Ambulatory Encounter Leeann Fernandez [facility] Adult Medicine UNK - Ambulatory Encounter Leilani Moncada [facility] UNK - Ambulatory Encounter Leilani Moncada [facility] UNK - Ambulatory Encounter Leilani Moncada [facility] UNK - Ambulatory Encounter Leilani Moncada [facility] [facility] UNK - Ambulatory Encounter Leilani Moncada [facility] UNK - Ambulatory Encounter Leilani Moncada [employer] [facility] UNK - Ambulatory Encounter Kristin Francois [facility] Economics Consultant UNK - Ambulatory Encounter Kristin Francois [facility] Economics Consultant UNK - Ambulatory Encounter Kristin Francois [facility] Economics Consultant UNK - Ambulatory Encounter [facility] Medicine UNK - Ambulatory Encounter Steve Goode [facility] Adult Medicine UNK - Ambulatory Encounter Yanet Nash [facility] UNK - Ambulatory Encounter Leilani Robertson [facility] UNK - Ambulatory Encounter Leilani Robertson [facility] Immunization due - Ambulatory Encounter Leilani Moncada [facility] Adult Medicine UNK - Ambulatory Encounter Leilani Moncada [employer] [facility] Adult Medicine UNK - Ambulatory Encounter Lola Leonardorix [facility]ant UNK - Ambulatory Encounter Lola Leonardorix [facility] UNK - Ambulatory Encounter Lola Leonardorix [facility] UNK - Ambulatory Encounter Lola Leonardorix [facility]ant UNK - Ambulatory Encounter Lola Leonardorix [facility] Economics Consultant UNK - Ambulatory Encounter Lola Leonardorix [facility] Economics Consultant UNK - Ambulatory Encounter Lola Leonardorix [facility]ant UNK - Ambulatory Encounter Lola Chou [facility] Economics [facility]ant UNK - Ambulatory Encounter Leilani Moncada [facility] UNK - Ambulatory Encounter Leilani Garvey [facility] Vitamin D deficiency - Ambulatory Encounter Leilani Moncada [facility] UNK - Ambulatory Encounter Leilani Garvey [facility] UNK - Ambulatory Encounter Leilani Valadez [facility] Adult Medicine UNK - Ambulatory Encounter Daisy Garvey [facility] UNK - Ambulatory Encounter Leilani Monte [facility] Disorder, endocrine NOStWeight gain, abnormalBMI=> 95%ile for age - Ambulatory Encounter Steve Goode [facility] Adult Medicine UNK - Ambulatory Encounter Steve Goode [facility] Adult Medicine UNK - Ambulatory Encounter Daisyselin Garvey [facility] UNK - Ambulatory Encounter Lola Chou [facility] Economics Consultant UNK - Ambulatory Encounter Lavern Chou [facility] Behavioral Health UNK - Ambulatory Encounter Lavern Barone [facility] UNK - Ambulatory Encounter Lola Chou [facility] Economics Consultant UNK - Ambulatory Encounter Lavern Mejia [facility] Behavioral Health UNK - Ambulatory Encounter Lola Chou [facility] Economics Consultant UNK - Ambulatory Encounter Lola Chou [facility] Behavioral Health UNK - Ambulatory Encounter Daisy Mcgowanvez [facility] UNK - Ambulatory Encounter Lavern Mejia [facility] UNK - Ambulatory Encounter Lavern Chou [facility] Behavioral Health UNK - Ambulatory Encounter Anila Cerda [facility] Behavioral Health UNK - Ambulatory Encounter Lavern Mcdonough Webb Perezraina Hunter [facility] Behavioral Health DEPRESSIVE DISORDER, MAJOR, SINGLE EPISODE, MILDGENDER DYSPHORIA, ADOLESCENTS AND ADULTS - Ambulatory Encounter Kizzy Barone [facility] Contact Center UNK VITAL SIGNS Date [...] Daisy Garvey " height percentile 34 Daisy Garvey " height in centimeters E&M 160.7 cm [...] Garvey " height E&M 62.99 [in_i] Daisy Gavrey " temperature site tympanic Daisy Garvey " [...] Daisy Garvey " weight E&M 227.48 lbs. Daisy Garvey " height percentile 32 Daisy Garvey [...] Status Fluzone Quadrivalent IM PF 0.5 ML [facility] [id number] San[employer] P[employer] 0.5 mL [id number] completed HISTORY OF MEDICATION USE Medication Instructions Dates Provider Comments ADAPALENE 0.1 % EXTERNAL CREAM small green Pea to face nightly Leilani Moncada EPIDUO 0.1-2.5 % EXTERNAL GEL to clean dry face nightly - Leilani Moncada BENZACLIN WITH PUMP 1-5 % EXTERNAL GEL apply to clean face every morning - Leilani Moncada VITAMIN D (ERGOCALCIFEROL) 62907 UNIT ORAL CAPSULE One tablet by mouth [...] home - share room with older brother. [employer] in 10th grade as of 12/25. Grades are all A's/B's. 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 Wants to [...] Anxiety Disorder Questionnaire - Question 3 2 Rubnia Robertson " Generalized Anxiety Disorder Questionnaire - [...] (14) TSH+Free T4 Est Patient Detailed - 34620 First Vx - Ix admin via ID IM or jet injects without counseling by physician Fluzone Quadrivalent IM Prefilled Syringe 0.5 mL (PF) Vaccines Ordered - Print Consent/Declination Forms Integrated Behavioral Health Assessment (IBH) Est Patient Detailed - 42439 Venipuncture Est Patient Detailed - 32322 Est Patient Detailed - 82550 BLOOD COUNT HEMOGLOBIN Economics Consultant Est Patient Comprehensive-30365 Est Patient Detailed - 48165 INFLUENZA VACCINE QUADRIVALENT 3 YRS PLUS IM INFLUENZA VACCINE QUADRIVALENT 3 YRS PLUS IM Economics Consultant Est Patient Detailed - 55949 Behavioral Health - Psychiatry Est Patient Detailed - 15675 INFLUENZA VACCINE QUADRIVALENT 3 YRS PLUS IM Est Patient Detailed - 57609 Case Mgmt Visit, Non-Billable [id number] IM or SQ Injection Est Patient Comprehensive-11407 New Patient Complex - 86863 Economics Consultant Economics Consultant Psychotherapy 30 (16-37*) min - 51655 (with patient and/or family member) Economics Consultant Psychotherapy 45 (38-52*) min - 16217 (with patient and/or family member) Diagnostic evaluation (no medical) - 89559 HISTORY OF PROCEDURES Procedure Date Procedure Name Provider Procedure Notes Status First Vx - Ix admin via ID IM or jet injects without counseling by physician Leilani Moncada completed Fluzone Quadrivalent IM Prefilled Syringe 0.5 mL (PF) Leilani Moncada completed Vaccines Ordered - Print Consent/Declination Forms Leilani Moncada completed Venipuncture Leilani Moncada completed BLOOD COUNT HEMOGLOBIN Leilani Moncada completed Case Mgmt Visit, Non-Billable [id number] Lola José Antonio completed IM or SQ Injection Leilani Moncada pt taught to self inject 0.3cc SQ of testosterone using own supply - injected single dose completed Psychotherapy 30 (16-37*) min - 32566 (with patient and/or family member) Lavern Mejia completed Psychotherapy 45 (38-52*) min - 03161 (with patient and/or family member) Lavern Mejia completed Diagnostic evaluation (no medical) - 36056 Lavern Mejia completed GOALS No Information Available HEALTH CONCERNS No Information Available
--- OUTSIDE RECORDS SUMMARY | 2019-10-26 19:47 | XMS REPORT ---
Author [facility] Address Unknown Phone Unavailable Care Team Providers Care Corrugator Machine Operator Name Role Phone Unavailable Unavailable Payers Payer Name Policy Type Policy Number Effective Date Expiration Date Problems This patient has no known problems. Allergies, Adverse Reactions, Alerts Allergy Name Allergy Type Status Severity Reaction(s) Onset Date Inactive Date Treating Clinician Comments shellfish derived FA Active MO 2015-10-29 00:00:00 Medications This patient has no known medications. Encounters Start Date/Time End Date/Time Encounter Type Admission Type Attending Clinicians Care Facility Care Department Encounter ID 2019-10-01 21:18:00 2019-10-01 21:18:00 [place] [facility] [place] [facility] Results Test Description Test Time Test Comments Text Results Atomic Results Result Comments HCG SERUM QUAL 2019-06-21 17:41:00 HCG SERUM QUAL (test code=HCGQL) NEGATIVE NEGATIVE This HCGQL test is NOT applicable for MALE patients.Check with nurse about probable order error.If Tumor Marker Test needed, nurse should order test "HCGTU"(Test #[id number]) BASIC METABOLIC [id number] 17:27:00* Test Item Value Reference Range Comments SODIUM (test code=NA) 142 mmol/L 136-145 POTASSIUM (test code=K) 4.2 mmol/L 3.5-5.1 CHLORIDE (test code=CL) 106.0 mmol/L 98-107 CARBON DIOXIDE (test code=CO2) 31.0 mmol/L 21-32 ANION GAP (test code=GAP) 9.2 10-20 GLUCOSE (test code=GLU) 93 mg/dL 74-106 BLOOD UREA NITROGEN (test code=BUN) 10 mg/dL 7-18 GLOMERULAR FILTRATION RATE (test code=GFR) > 60 mL/min >=60 Estimated GFR by using Modified MDRD formula.Chronic kidney disease is defined as either kidney damageor GFR <60 mL/min/1.73 m2 for >3 months. CREATININE (test code=CREAT) 0.80 mg/dL 0.55-1.02 Note change in reference range due to change in reagent. BUN/CREATININE RATIO (test code=BUN/CREA) 12.0 10-20 CALCIUM (test code=CA) 9.3 mg/dL 8.5-10.1 BASIC METABOLIC [id number] 17:23:00* Test Item Value Reference Range Comments SODIUM (test code=NA) 142 mmol/L 136-145 POTASSIUM (test code=K) 4.2 mmol/L 3.5-5.1 CHLORIDE (test code=CL) 106.0 mmol/L 98-107 CARBON DIOXIDE (test code=CO2) mmol/L 21-32 ANION GAP (test code=GAP) 10-20 GLUCOSE (test code=GLU) mg/dL 74-106 BLOOD UREA NITROGEN (test code=BUN) mg/dL 7-18 GLOMERULAR FILTRATION RATE (test code=GFR) mL/min >=60 CREATININE (test code=CREAT) mg/dL 0.55-1.02 BUN/CREATININE RATIO (test code=BUN/CREA) 10-20 CALCIUM (test code=CA) mg/dL 8.5-10.1 CBC W/O [id number] 16:41:00* Test Item Value Reference Range Comments WHITE BLOOD CELL (test code=WBC) 9.2 K/mm3 4.5-12.5 RED BLOOD CELL (test code=RBC) 4.81 mill/mm3 3.7-5.2 HEMOGLOBIN (test code=HGB) 14.9 gram/dL 11.5-15.5 HEMATOCRIT (test code=HCT) 44.7 % 36.0-46.0 MEAN CELL VOLUME (test code=MCV) 92.9 fL 80-98 MEAN CELL HGB (test code=MCH) 31.0 picogram 27.0-33.0 MEAN CELL HGB CONCETRATION (test code=MCHC) 33.3 gram/dL 33.0-36.0 RED CELL DISTRIBUTION WIDTH (test code=RDW) 11.7 % 11.6-16.2 PLATELET COUNT (test code=PLT) 235 K/mm3 150-450 MEAN PLATELET VOLUME (test code=MPV) 10.9 fL 6.7-11.0 CT Brain/Head w/o [id number] 20:57:14Patient: JAS POTTER Date/Time02/23/2018 20:35 CDTReason for ExamTraumaReportExam: CT of the brain and cervical spine without contrast.History: Trauma.Technique: Contiguous axial CT images were obtained from the skull base through the vertex without intravenous contrast. Contiguous axial CT images of the cervical spine was obtained without intravenous contrast.One or more of the following dose reduction techniques were used: Automated exposure control, adjustment of the mA and/or kV according to patient size, and/or utilization of iterative reconstruction technique. Total DLP: 1460.7mGy-cm.Comparison: None.Location: [id number]:Head: The ventricles and sulci are normal in size and symmetric. The basal cisterns are patent. There is no mass effect or midline shift. There is no acute intracranial hemorrhage. There is no evidence for acute territorial infarction. There are no extra-axial fluid collections.The visualized paranasal sinuses and mastoid air cells are cesar ar.Cervical spine: There is no prevertebral soft tissue swelling. There is no si gnificant scoliosis or listhesis. The vertebral body heights are maintained. The intervertebral disc spaces appear preserved.The thyroid appears unremarkable. T he visualized lung apices are within normal limits.Impression:1. No non-contra st ct evidence of an acute intracranial abnormality.2. No acute fracture or rutledge bluxation of the cervical spine. Final Dictated by: MD Dexter Rober t KDictated DT/TM: 02/23/2018 8:48 pmSigned by: MD Dexter Robert KSigned (Elect ronic Signature): 02/23/2018 8:57 pmCT Spine Cervical w/o [id number] 20:57:14Patient: JAS POTTER Date/Time02/23/2018 20:35 CDTReason for ExamTraumaReportExam: CT of the brain and cervical spine without contrast.History: Trauma.Technique: Contiguous axial CT images were obtained from the skull base through the vertex without intravenous contrast. Contiguous axial CT images of the cervical spine was obtained without intravenous contrast.One or more of the following dose reduction techniques were used: Automated exposure control, adjustment of the mA and/or kV according to patient size, and/or utilization of iterative reconstruction technique. Total DLP: 1460.7mGy-cm.Comparison: None.Location: [id number]:Head: The ventricles and sulci are normal in size and symmetric. The basal cisterns are patent. There is no mass effect or midline shift. There is no acute intracranial hemorrhage. There is no evidence for acute territorial infarction. There are no extra-axial fluid collections.The visualized paranasal sinuses and mastoid air cells are clear.Cervical spine: There is no prevertebral soft tissue swelling. There is no significant scoliosis or listhesis. The vertebral body heights are maintained. The intervertebral disc spaces appear preserved.The thyroid appears unremarkable. The visualized lung apices are within normal limits.Impression:1. No non-contrast ct evidence of an acute intracranial abnormality.2. No acute fracture or subluxation of the cervical spine. Final Dictated by: MD Dexter Robert KDictated DT/TM: 02/23/2018 8:48 pmSigned by: MD Dexter Robert KSigned (Electronic Signature): 02/23/2018 8:57 pmXR Ankle Complete 3+ Views [id number] 20:04:31 Patient: JAS POTTER am Date/Time02/23/2018 19:53 CDTReason for ExamTraumaReportSTUDY: Knee and ankle radiographHISTORY: InjuryCOMPARISON: No PriorTECHNIQUE: AP and lateral views of the bilateral knees. AP, oblique and lateral views of the bilateral ankles.SITE: [id number]:Bilateral knees: There is no acute fracture or knee dislocation, b ilaterally. The bilateral tricompartmental joint spaces are symmetric without si gnificant degenerative change or erosive disease. There are no abnormal soft tis nancy calcifications or radiopaque foreign bodies. There is no significant suprapa tellar effusion, bilaterally.Bilateral ankles: There is no acute fracture, bilat erally. There is no tibiotalar dislocation, bilaterally. The bilateral ankle mor tises appears symmetric. There is no radiopaque foreign body or abnormal soft ti ssue calcification.IMPRESSION:No evidence of acute osseous abnormality of the bi lateral knees or ankles. Final Dictated by: MD Dexter Robert KDicta ted DT/TM: 02/23/2018 8:01 pmSigned by: MD Dexter Robert KSigned (Electronic Si gnature): 02/23/2018 8:04 pmXR Knee 1 or 2 Views [id number] 20:04:31 Patient: JAS POTTER am Date/Time02/23/2018 19:53 CDTReason for ExamInjuryReportSTUDY: Knee and ankle radiographHISTORY: InjuryCOMPARISON: No PriorTECHNIQUE: AP and lateral views of the bilateral knees. AP, oblique and lateral views of the bilateral ankles.SITE: [id number]:Bilateral knees: There is no acute fracture or knee dislocation, b ilaterally. The bilateral tricompartmental joint spaces are symmetric without si gnificant degenerative change or erosive disease. There are no abnormal soft tis nancy calcifications or radiopaque foreign bodies. There is no significant suprapa tellar effusion, bilaterally.Bilateral ankles: There is no acute fracture, bilat erally. There is no tibiotalar dislocation, bilaterally. The bilateral ankle mor tises appears symmetric. There is no radiopaque foreign body or abnormal soft ti ssue calcification.
--- OUTSIDE RECORDS SUMMARY | 2019-10-26 19:48 | XMS REPORT ---
Author Author Admin, [place] Organization Unknown Address Unknown Phone Unavailable PROBLEMS [...] Encounter Diagnosis - Ambulatory Encounter Leilani Moncada [facility] Depressed mood - Ambulatory Encounter Leilani Moncada [facility] UNK - Ambulatory Encounter Rubina Robertson [facility] UNK - Ambulatory Encounter Leilani Moncada [facility] UNK - Ambulatory Encounter Leilani Amandayulissa Mckenna Christine [facility] Flu vaccine - Ambulatory Encounter Leilani Moncada [place] [facility] UNK - Ambulatory Encounter Leilani Garvey [facility] UNK - Ambulatory Encounter Rubina Robertson [facility] UNK - Ambulatory Encounter Leilani Moncada [facility] UNK - Ambulatory Encounter Leilani Moncada [facility] UNK - Ambulatory Encounter Leilani Moncada [employer] Rubina Marcelo [facility] UNK - Ambulatory Encounter Leilani Moncada [facility] [facility] UNK - Ambulatory Encounter Daisy Garvey [facility] UNK - Ambulatory Encounter Leilani Moncada [facility] UNK - Ambulatory Encounter Leilani Burroughs [facility] Screening visit for sexually trans dis - Ambulatory Encounter Leilani Moncada [facility] Adult Medicine UNK - Ambulatory Encounter Leilani Moncada [employer] [facility] Medicine UNK - Ambulatory Encounter Deonna Bryan [facility] Behavioral Health UNK - Ambulatory Encounter Leilani Garvey [facility] UNK - Ambulatory Encounter Leilani Moncada [facility] UNK - Ambulatory Encounter Leilani Moncada [...] [facility] - [facility]ulatory Encounter Leilani [facility]cada [facility] [facility] UNK - Ambulatory Encounter Leilani Moncada [facility] [facility] UNK - [facility] - [facility] - Ambulatory Encounter Leilani Moncada [facility] UNK - Ambulatory Encounter Leilani Garvey [facility] Costochondritis, left - Ambulatory Encounter Leeann Fernandez [facility] Adult Medicine UNK - Ambulatory Encounter Daisy Fernandez [facility] UNK - Ambulatory Encounter Deepak Livingston [facility] Photocopier Technician UNK - Ambulatory Encounter Leilani Livingston [facility] UNK - Ambulatory Encounter Daisy Otero [facility] UNK - Ambulatory Encounter Rubina Robertson [facility] UNK - Ambulatory Encounter Leilani Moncada [facility] Adult Medicine UNK - Ambulatory Encounter Leilani Moncada [facility] Adult Medicine UNK - [facility] Adult Medicine UNK - Ambulatory Encounter Leilani Valadez Rubina Marcelo [facility] Adult Medicine UNK - Ambulatory Encounter Courtney Ludwig [facility] Adult Medicine UNK - Ambulatory Encounter Courtney Ludwig [facility] Adult Medicine UNK - Ambulatory Encounter Leilani Moncada [facility] UNK - Ambulatory Encounter Leilani Burroughs [facility] Elevated hemoglobinScreening visit for sexually trans dis - Ambulatory Encounter Leeann Fernandez [facility] Adult Medicine UNK - Ambulatory Encounter [facility]ilani [facility]cada [facility] UNK - Ambulatory Encounter Leilani Moncada [facility] UNK - Ambulatory Encounter Leilani Moncada [facility] [facility] UNK - Ambulatory Encounter Leilani Moncada [facility] [facility] UNK - Ambulatory Encounter Leilani Moncada [facility] UNK - Ambulatory Encounter Leilani Moncada [facility] [facility] UNK - Ambulatory Encounter Kristin Francois [facility] Photocopier Technician UNK - Ambulatory Encounter Kristin Francois [facility] Photocopier Technician UNK - Ambulatory Encounter Kristin Francois [facility] Photocopier Technician UNK - Ambulatory Encounter [facility] [...] Medicine UNK - Ambulatory Encounter Steve Goode [facility] Adult Medicine UNK - Ambulatory Encounter Yanet [facility] UNK - Ambulatory Encounter Leilani Robertson [facility] UNK - Ambulatory Encounter Leilani Robertson [facility] Immunization due - Ambulatory Encounter Leilani Moncada [facility] Adult Medicine UNK - Ambulatory Encounter Leilani Moncada [employer] [facility] Adult Medicine UNK - Ambulatory Encounter Lola Leonardorix [facility] Photocopier Technician UNK - Ambulatory Encounter Lola Leonardorix [facility] Photocopier Technician UNK - Ambulatory Encounter Lola Leonardorix [facility] Photocopier Technician UNK - Ambulatory Encounter Lola Leonardorix [facility] Photocopier Technician UNK - Ambulatory Encounter Lola Leonardorix [facility] Photocopier Technician UNK - Ambulatory Encounter Lola Leonardorix [facility] Photocopier Technician UNK - Ambulatory Encounter Lola Leonardorix [facility] Photocopier Technician UNK - Ambulatory Encounter Lola Chou [facility] Photocopier Technician UNK - Ambulatory Encounter Leilani Moncada [facility] UNK - Ambulatory Encounter Leilani Garvey [facility] Vitamin D deficiency - Ambulatory Encounter Leilani Moncada [facility] UNK - Ambulatory Encounter Leilani Garvey [facility] UNK - Ambulatory Encounter Leilani Valadez [facility] Adult Medicine UNK - Ambulatory Encounter Daisy Garvey [facility] UNK - Ambulatory Encounter Leilani Monte [facility] Disorder, endocrine NOStWeight gain, abnormalBMI=> 95%ile for age - Ambulatory Encounter Steve Goode [facility] Adult Medicine UNK - Ambulatory Encounter Steve Goode [facility] Adult Medicine UNK - Ambulatory Encounter Daisyselin Garvey [facility] UNK - Ambulatory Encounter Lola Chou [facility] Photocopier Technician UNK - Ambulatory Encounter Lavern Chou [facility] Behavioral Health UNK - Ambulatory Encounter Lavern Barone [facility] UNK - Ambulatory Encounter Lola Chuo [facility] Photocopier Technician UNK - Ambulatory Encounter Lavern Mejia [facility] Behavioral Health UNK - Ambulatory Encounter Lola Chou [facility] Photocopier Technician UNK - Ambulatory Encounter Lola Chou [facility] Behavioral Health UNK - Ambulatory Encounter Daisy Mcgowanvez [facility] UNK - Ambulatory Encounter Lavern Mejia [facility] UNK - Ambulatory Encounter Lavern Chou [facility] Health UNK - Ambulatory Encounter Anila Cerda [facility] Health UNK - Ambulatory Encounter Lavern Mcdonough Webb Perezraina Hunter [facility] Health DEPRESSIVE DISORDER, MAJOR, SINGLE EPISODE, MILDGENDER DYSPHORIA, ADOLESCENTS AND ADULTS - Ambulatory Encounter Kizzy Barone [facility] Contact Center UNK VITAL SIGNS [...] method used to obtain blood pressure automatic Dasiy Garvey " Blood Pressure Position 01 sitting [...] Daisy Garvey " temperature E&M 98 [degF] Daiys Garvey " weight percentile 97 Daisy Garvey [...] Status Fluzone Quadrivalent IM PF 0.5 ML [facility] [id number] [employer] P[employer] 0.5 mL [id number] completed HISTORY OF MEDICATION USE Medication Instructions Dates Provider Comments ADAPALENE 0.1 % EXTERNAL CREAM small green Pea to face nightly Leilani Moncada EPIDUO 0.1-2.5 % EXTERNAL GEL to clean dry face nightly - Leilani Moncada BENZACLIN WITH PUMP 1-5 % EXTERNAL GEL apply to clean face every morning - Leilani Moncada VITAMIN D (ERGOCALCIFEROL) 11593 UNIT ORAL CAPSULE One tablet by mouth [...] home - share room with older brother. [employer] in 10th grade as of 12/25. Grades are all A's/B's. 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 Enrolling in program to get Associate's when graduating from .Wants to possibly be a special officer then work up to [employer]. Wants [...] (14) TSH+Free T4 Est Patient Detailed - 49025 First Vx - Ix admin via ID IM or jet injects without counseling by physician Fluzone Quadrivalent IM Prefilled Syringe 0.5 mL (PF) Vaccines Ordered - Print Consent/Declination Forms Integrated Behavioral Health Assessment (IBH) Est Patient Detailed - 71975 Venipuncture Est Patient Detailed - 36190 Est Patient Detailed - 38278 BLOOD COUNT HEMOGLOBIN Photocopier Technician Est Patient Comprehensive-15821 Est Patient Detailed - 99596 INFLUENZA VACCINE QUADRIVALENT 3 YRS PLUS IM INFLUENZA VACCINE QUADRIVALENT 3 YRS PLUS IM Photocopier Technician Est Patient Detailed - 48799 Behavioral Health - Psychiatry Est Patient Detailed - 35627 INFLUENZA VACCINE QUADRIVALENT 3 YRS PLUS IM Est Patient Detailed - 37065 Case Mgmt Visit, Non-Billable [id number] IM or SQ Injection Est Patient Comprehensive-62733 New Patient Complex - 74582 Photocopier Technician Photocopier Technician Psychotherapy 30 (16-37*) min - 61003 (with patient and/or family member) Photocopier Technician Psychotherapy 45 (38-52*) min - 39835 (with patient and/or family member) Diagnostic evaluation (no medical) - 47744 HISTORY OF PROCEDURES Procedure Date Procedure Name Provider Procedure Notes Status First Vx - Ix admin via ID IM or jet injects without counseling by physician Leilani Moncada completed Fluzone Quadrivalent IM Prefilled Syringe 0.5 mL (PF) Leilani Moncada completed Vaccines Ordered - Print Consent/Declination Forms Leilani Moncada completed Venipuncture Leilani Moncada completed BLOOD COUNT HEMOGLOBIN Leilani Moncada completed Case Mgmt Visit, Non-Billable [id number] Lola José Antonio completed IM or SQ Injection Leilani Moncada pt taught to self inject 0.3cc SQ of testosterone using own supply - injected single dose completed Psychotherapy 30 (16-37*) min - 22528 (with patient and/or family member) Lavern Mejia completed Psychotherapy 45 (38-52*) min - 92403 (with patient and/or family member) Lavern Mejia completed Diagnostic evaluation (no medical) - 29104 Lavern Mejia completed GOALS No Information Available HEALTH CONCERNS No Information Available
--- OUTSIDE RECORDS SUMMARY | 2019-10-26 19:48 | XMS REPORT ---
Author Author Admin, Wood Organization Unknown Address Unknown Phone Unavailable PROBLEMS [...] Provider Location Encounter Diagnosis - Ambulatory Encounter Rosalia Wade [facility] [place] [facility] UNK - Ambulatory Encounter Leilani Moncada [facility] [place] [facility] Depressed mood - Ambulatory Encounter Leilani Moncada [facility] [place] [facility] UNK - Ambulatory Encounter Rubina Robertson [facility] UNK - Ambulatory Encounter Leilani Mocnada [facility] UNK - Ambulatory Encounter Leilani Amandayulissa Robertson Clarisa King [facility] [place] [facility] Flu vaccine - Ambulatory Encounter Leilani Haynes Lillian MedAdherence [facility] UNK - Ambulatory Encounter Leilani Haynes Lillian MedAdherence [facility] UNK - Ambulatory Encounter Rubina Robertson [facility] UNK - Ambulatory Encounter Leilani Moncada [facility] [place] [facility] UNK - Ambulatory Encounter Leilani Moncada [facility] [place] [facility] UNK - Ambulatory Encounter Leilani Moncada LinkLogic Rubinayulissa Robertson [facility] [place] [facility] UNK - Ambulatory Encounter Leilani Moncada LinkLogic [facility] [place] [facility] UNK - Ambulatory Encounter Daisy Garvey [facility] [place] [facility] UNK - Ambulatory Encounter Leilani Moncada [facility] [place] [facility] UNK - Ambulatory Encounter Leilani Burroughs [facility] [place] [facility] Screening visit for sexually trans dis - Ambulatory Encounter Leilani Moncada [facility] [place] Adult Medicine UNK - Ambulatory Encounter Leilani Moncada [employer] [facility] [place] [facility] UNK - Ambulatory Encounter Deonna Bryan [facility] [place] [facility] UNK - Ambulatory Encounter Leilani Garvey [facility] [place] [facility] UNK - Ambulatory Encounter Leilani Moncada [facility] UNK - Ambulatory Encounter Leilani Amandaa Marcelo [facility] VaccinationCostochondritis, left - Ambulatory Encounter [...] [facility] - [facility] Encounter Leilani Moncada [facility] UNK - Ambulatory Encounter Leilani Moncada [facility] UNK - [facility] - Ambulatory Encounter Leilani Moncada [facility] [place] [facility] UNK - Ambulatory Encounter Leilani Garvey [facility] [place] [facility] Costochondritis, left - Ambulatory Encounter Leeann Fernandez [facility] [place] Adult [facility] UNK - Ambulatory Encounter Daisy Fernandez [facility] [place] [facility] UNK - Ambulatory Encounter Deepak Livingston [facility] [place] Spray Booth Operator UNK - Ambulatory Encounter Leilani Livingston [facility] [place] [facility] UNK - [facility] Encounter Rubina Robertson [facility] [place] [facility] UNK - Ambulatory Encounter Leilani Moncada [facility] [place] Adult Medicine UNK - Ambulatory Encounter Leilani Moncada [facility] [place] [facility] UNK - [facility] - Ambulatory Encounter Leilani Valadez Rubina Marcelo [facility] [place] [facility] UNK - Ambulatory Encounter Courtney Ludwig [facility] [place] Adult Medicine UNK - Ambulatory Encounter Courtney Ludwig [facility] [place] Adult Medicine UNK - Ambulatory Encounter Leilani Moncada [facility] [place] [facility] UNK - Ambulatory Encounter Leilani Burroughs [facility] [place] [facility] Elevated hemoglobinScreening visit for sexually trans dis - Ambulatory Encounter Leeann Fernandez [facility] [...] UNK - Ambulatory Encounter Kristin Francois [facility] Spray Booth Operator UNK - Ambulatory Encounter Kristin Francois [facility] Spray Booth Operator UNK - Ambulatory Encounter Kristin Francois [facility] Spray Booth Operator UNK - Ambulatory Encounter Leilani Moncada [facility] UNK - Ambulatory Encounter Leilani Moncada [facility] UNK - Ambulatory Encounter Leilani Moncada [facility] UNK - Ambulatory Encounter Leilani Ramírez Kristin Francois Yessina Dove Cher Chica [facility] Vaccination - Ambulatory Encounter [...] [facility] UNK - Ambulatory Encounter Leilani Rodrigez [facility] Exercise counselingDietary surveillance/counselingAcne vulgaris, facial, mild - Ambulatory Encounter Leilani Moncada [facility] UNK - Ambulatory Encounter Leilani Moncada [facility] UNK - Ambulatory Encounter Leilani Moncada [facility] UNK - Ambulatory Encounter Leilani Moncada [facility] UNK - Ambulatory Encounter Leilani Moncada [facility] UNK - Ambulatory Encounter Leilani Webb [facility] Immunization due - Ambulatory Encounter Leilani Mocnada [facility] UNK - Ambulatory Encounter Leilani Moncada [facility] UNK - Ambulatory Encounter Leilani Moncada [facility] UNK - Ambulatory Encounter Leilani Moncada [facility] UNK - Ambulatory Encounter Steve Goode [facility] UNK - Ambulatory Encounter Steve Goode [facility] UNK - Ambulatory Encounter Steve Goode [facility] UNK - [facility]ulatory Encounter Leilani Robertson [facility] UNK - Ambulatory Encounter Leilani Robertson [facility] [place] [facility] Immunization due - Ambulatory Encounter Leilani Moncada [facility] [place] Adult Medicine UNK - Ambulatory Encounter Leilani Moncada LinkLog[employer] [facility] [place] Adult [facility] UNK - Ambulatory Encounter Lola Leonardorix [facility] Spray Booth Operator UNK - Ambulatory Encounter Lola Leonardorix [facility] Spray Booth Operator UNK - Ambulatory Encounter Lola Leonardorix [facility] Spray Booth Operator UNK - Ambulatory Encounter Lola Leonardorix [facility] Spray Booth Operator UNK - Ambulatory Encounter Lola Leonardorix [facility] Spray Booth Operator UNK - Ambulatory Encounter Lola Leonardorix [facility] Spray Booth Operator UNK - Ambulatory Encounter Lola Leonardorix [facility] Spray Booth Operator UNK - Ambulatory Encounter Lola Leonardorix [facility] Spray Booth Operator UNK - Ambulatory Encounter Leilani Moncada [facility] UNK - Ambulatory Encounter Leilani Garvey [facility] [place] [facility] Vitamin D deficiency - Ambulatory Encounter Leilani Moncada [facility] UNK - Ambulatory Encounter Leilani Caryselin Kohlerz [facility] UNK - Ambulatory Encounter Leilani Moncada LinkLogkat[employer] [facility] [place] [facility] UNK - Ambulatory Encounter Daisyselin Garvey [facility] [place] [facility] UNK - Ambulatory Encounter Leilani Monte [facility] [place] [facility] Disorder, endocrine NOStWeight gain, abnormalBMI=> 95%ile for age - Ambulatory Encounter Steve Goode [facility] [place] Adult [facility] UNK - Ambulatory Encounter Steve Goode [facility] [place] Adult [facility] UNK - Ambulatory Encounter Daisyselin Garvey [facility] [place] [facility] UNK - Ambulatory Encounter Lola Chou [facility] [place] Spray Booth Operator UNK - Ambulatory Encounter Lavern Chou [facility] [place] [facility] UNK - Ambulatory Encounter [facility] UNK - Ambulatory Encounter Lola Chou [facility] [place] Spray Booth Operator UNK - Ambulatory Encounter Lavern Mejia [facility] [place] [facility] UNK - Ambulatory Encounter Lola Chou [facility] [place] Spray Booth Operator UNK - Ambulatory Encounter Lola Chou [facility] [place] [facility] UNK - Ambulatory Encounter Daisy Mcgowanvez [facility] [place] [facility] UNK - Ambulatory Encounter Lavern Mejia [facility] UNK - Ambulatory Encounter Lavern Chou [facility] [place] [facility] UNK - Ambulatory Encounter Anila Cerda [facility] [place] [facility] UNK - Ambulatory Encounter Lavern Moralisharaina Hunter [facility] [place] [facility] DEPRESSIVE DISORDER, MAJOR, SINGLE EPISODE, MILDGENDER DYSPHORIA, ADOLESCENTS AND ADULTS - Ambulatory Encounter Kizzy [facility] Contact Center UNK VITAL SIGNS Date Observation Value Provider temperature E&M 98.1 [degF] Rubina Robertson " blood pressure, diastolic 78 mm[Hg] Rubina Marcelo " blood pressure, systolic 134 mm[Hg] Rubina Marcelo " pulse rate E&M 93 /min Rubina Robertson " oxygen saturation, oximetry 94 % Rubina Robertson " height in centimeters E&M 160.5 cm Rubina Robertson " height E&M 63.19 [in_i] Rubinatopher Robertson " weight in kilograms E&M 95.9 kg Rubina Robertson " weight E&M 210.98 lbs. Rubina Robertson " method used to obtain blood pressure automatic Rubina Robertson " Blood Pressure Position 01 sitting Rubinatopher Robertson " blood pressure, site #1 left arm Rubina Marcelo " temperature site oral Rubina Marcelo oxygen saturation, oximetry 98 % Daisy Garvey " method used to obtain blood pressure automatic Daisy Garvey " Blood Pressure Position 01 sitting Daisy Garvey " blood pressure, site #1 left arm Daisy Guru " blood pressure, diastolic 63 mm[Hg] Daisy Garvey " blood pressure, systolic 107 mm[Hg] Daisy Garvey " pulse rate E&M 67 /min Daisy Guru " temperature E&M 99.2 [degF] Daisy Garvey " height percentile 34 Daisy Garvey " height in centimeters E&M 160.7 cm Daisy Guru " height E&M 63.27 [in_i] Daisy Garvey " weight percentile 97 Daisy Garvey " weight in kilograms E&M 89.7 kg Daisy Guru " weight E&M 197.34 lbs. Daisy Garvey blood pressure, diastolic 62 mm[Hg] Rubina Marcelo " blood pressure, systolic 113 mm[Hg] Rubina Marcelo " oxygen saturation, oximetry 97 % Rubina Robertson " pulse rate E&M 69 /min Rubina Robertson " temperature E&M 98.2 [degF] Rubina Robertson " weight percentile 93 Rubina Robertson " weight in kilograms E&M 78 kg Rubinatopher Robertson " weight E&M 171.60 lbs. Rubina [...] pressure, diastolic, second observation 76 mm[Hg] Leilani Antwan " blood pressure, systolic, second observation 104 [...] Garvey " weight E&M 197.78 lbs. Daisy Garvey " height percentile 31 Daisy Garvey " [...] Burroughs " pulse rate E&M 74 /min Adela Burroughs " temperature E&M 98.7 [degF] Adela Burroughs " temperature site oral Adela Burroughs " weight percentile 98 Adela Burroughs " weight in kilograms E&M 98 kg Adela Burroughs " weight E&M 215.60 lbs. Adela Burroughs " height percentile 34 Adela Burroughs " height in centimeters E&M 160.5 cm Adela Burroughs " height E&M 63.19 [in_i] Adela Burroughs oxygen saturation, oximetry 97 % Rubina [...] Robertson " Blood Pressure Position 01 sitting Rubinayulissa Robertson " blood pressure, site #1 left arm Rubinatopher Robertson " temperature site tympanic Rubina Robertson [...] height in centimeters E&M 160 cm Daisy Guru " height E&M 62.99 [in_i] Daisy Garvey " temperature site tympanic Daisy Garvey " method used to obtain blood pressure automatic Daisy Garvey " Blood Pressure Position 01 sitting Daisy Garvey " blood pressure, site #1 left arm Daisy Garvey Diastolic BP Classification - Category Normal Rubina Robertson " Diastolic BP Percentile 82 Rubina Robertson " Systolic BP Classification - Category Normal Rubina Marcelo " Systolic BP Percentile 47 Rubina Robertson " pulse rate E&M 65 /min Rubina Robertson " method used to obtain blood pressure automatic Rubina Robertson " Blood Pressure Position 01 sitting Rubina Robertson " blood pressure, site #1 left arm Rubina Marcelo " blood pressure, diastolic 76 mm[Hg] Rubinayulissa Robertson " blood pressure, systolic 110 mm[Hg] Rubina Marcelo " temperature site tympanic Rubina Robertson " temperature E&M 96.2 [degF] Rubina Robertson " weight percentile 99 Rubina Robertson " weight in kilograms E&M 99.7 kg Rubina Robertson " weight E&M 219.34 lbs. Rubina Robertson " height percentile 31 Rubinatopher Robertson " height in centimeters E&M 159.8 [...] Daisy Garvey " weight percentile 97 Daisy Garvye " weight in kilograms E&M 84.4 kg [...] LinkLogic 3.4-10.8 hematocrit, blood 16.1 % Leilani Moncada Neisseria gonorrhoeae, throat culture Negative Link[employer]ic Negative Neisseria gonorrhoeae DNA probe Negative [employer]ic Negative " chlamydia DNA probe Negative [employer] Negative hematocrit, blood 15.3 % Leilani Moncada vitamin D 25-hydroxy, serum 29.6 ng/mL LinkLogic [...] as percent of blood leukocytes 6 % LinkLog " lymphocytes as percent of blood leukocytes 35 % [employer] " neutrophils as percent of blood leukocytes 58 % [employer] " platelet count 250 X10E3/UL LinkLog 150-379 " red blood cell distribution width 13.0 % LinkLog 12.3-15.4 " mean corpuscular hemoglobin concentration, RBC 31.9 G/DL LinkLog 31.5-35.7 " mean corpuscular hemoglobin, RBC 30.3 pg [employer] 26.6-33.0 " mean corpuscular volume, RBC 95 fL LinkLog 79-97 " hematocrit, blood 43.2 % LinkLog 34.0-46.6 " hemoglobin, blood 13.8 g/dL LinkLog 11.1-15.9 " erythrocyte (RBC) count 4.56 X10E6/UL LinkLog 3.77-5.28 " leukocyte count, blood 6.7 X10E3/UL LinkLog 3.4-10.8 " thyroxine, serum, free 1.00 ng/dL LinkLog 0.93-1.60 " thyroid stimulating hormone, serum 1.520 u[iU]/mL LinkLog 0.450-4.500 HISTORY OF IMMUNIZATIONS Date Vaccine Dose Lot Number Status Fluzone Quadrivalent IM PF 0.[address] [facility] [address]-48 San[employer]i Pasteur 0.5 mL [id number] completed HISTORY OF MEDICATION USE Medication Instructions Dates Provider Comments ADAPALENE 0.1 % EXTERNAL CREAM small green Pea to face nightly Leilani Moncada EPIDUO 0.1-2.5 % EXTERNAL GEL to clean dry face nightly - Leilani Moncada BENZACLIN WITH PUMP 1-5 % EXTERNAL GEL apply to clean face every morning - Leilani Moncada VITAMIN D (ERGOCALCIFEROL) 70403 UNIT ORAL CAPSULE One tablet by mouth once per week for 12 weeks - Leilani Moncada TESTOSTERONE CYPIONATE 200 MG/ML INTRAMUSCULAR SOLUTION 0.4cc SQ weekly Leilani Moncada RETIN-A 0.025 % EXTERNAL GEL to clean dry face nightly - Leilani Moncada SOCIAL HISTORY Date Observation Value Provider drug use, illicit Never Rosalia [place] " alcohol use Never Rosalia [place] " smoking status never smoker Rosalia [place] " social history reviewed E&M reviewed today Rosalia Lewisale " social history E&M Dating since 07/2019. Raised by mom and mom and grandma. Close with mom. Has 2 brothers, 18yo and 8yo, good relationships. Dad is uninvolved, text ocassionally, three additional brothers on dad's side. Parents in 2002. In extended family closest with uncle Johny. All of family are re gender identity. Has girlfriend, dating for a year but "official" for 3 months, good relationship. Not homeless. Lives with mom and 2 brothers. Mobile home - share room with older brother. Girlfriend also moved in. Employed full-time. [employer]. Highest education level: high school graduate. 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 Works at [employer] once a week. 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 Sex at : Female. Sexual orientation: Heterosexual. Gender identity: Transgender (Female to Male). Gender of partner(s): Female. Sexually Active: No. Identifies as straight transmale. Has girlfriend of 3 months. Currently sexually active, no safer sex practices. No involvement with CPS. Rosalia Lewisale " sex at Female Rosalia Lewisale " social history - sexual practice Identifies as straight transmale. Has girlfriend of 3 months. Currently sexually active, no safer sex practices. 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 Close with mom. Has 2 brothers, 18yo and 8yo, good relationships. Dad is uninvolved, text ocassionally, three additional brothers on dad's side. Parents in 2002. In extended family closest with uncle Johny. All of family are re gender identity. Has girlfriend, dating for a year but "official" for 3 months, good relationship. Rosalia Sheri " home/family situation, assessment Lives with mom and 2 brothers. Mobile home - share room with older brother. Girlfriend also moved in. Rosalia Wade social history reviewed E&M reviewed - no [...] " sexual orientation Heterosexual Rubina Robertson " passive cigarette smoke exposure No Rubina Robertson " smoking status never smoker Rubina Marcelo [...] " passive cigarette smoke exposure No Rubina Robertson " smoking status never smoker Rubina Marcelo " Exercise Program Referral T Rubina Marcelo " Weight Management Counseling Provided T Rubina Marcelo " Nutrition intervention T Rubina Robertson social history reviewed E&M reviewed - no changes required Leilani Moncada " is there any chance that you could be ? No Daisy Garvey " sexual orientation Heterosexual Daisyselin Kohlerz " smoking status never smoker Daisy Garvey [...] Garvey " Nutrition intervention T Daisy Garvey drug use, illicit Never Lavern Mejia " [...] home - share room with older brother. [employer] in 10th grade as of 12/25. Grades are all A's/B's. 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 Enrolling in program to get Associate's when graduating from .Wants to possibly be a police captain then work up to [employer]. Wants to attend [employer]. Mom is a certified MA. No current partner. Never been sexually active. No involvement with CPS. Lavern Mejia" social history - sexual practice No current [...] Available MENTAL STATUS Date Observation Value Provider mental status assessment, judgment age-appropriate Rosalia [place] " insight (mental status exam) age-appropriate Rosalia [place] " Mental Status Exam: intelligence adequate fund of information, intact memory processes, average Rosalia [place] " thought content (mental status exam) (E&M) lucid Rosalia [place] " mental status assessment, process able to abstract, goal-directed, logical Rosalia [place] " mental status assessment, sensorium alert, attentive, clear Rosalia [place] " affect (mental status exam) congruent, euthymic, normal intensity, normal range Rosalia [place] " mood (mental status exam) pleasant Rosalia [place] " mental status assessment, speech activity normal flow, normal pace, normal pressure, normal rate, normal tone, normal volume, spontaneous Rosalia [place] " mental status assessment, motor activity normal gait, normal posture Rosalia [place] " behavior (mental status exam) appropriate, candid, cooperative, good eye contact, polite, responsive, - Rosalia [place] " mental appearance (mental status exam) adequate hygiene, appropriate dress, looks like stated age, neat, short hair; glasses; masculine dress Rosalia [place] " delusion No Rosalia [place] " hallucinations No Rosalia [place] " If any problems checked, how difficult have these problems made it for you to do your work, take care of things at home, or get along with other people (GAD7, question 8) 0 Rosalia [place] " Generalized Anxiety Disorder Questionnaire - Question 7 1 Rosalia [place] " Generalized Anxiety Disorder Questionnaire - Question 6 2 Rosalia [place] " Generalized Anxiety Disorder Questionnaire - Question 5 1 Rosalia [place] " Generalized Anxiety Disorder Questionnaire - Question 4 0 Rosalia [place] " Generalized Anxiety Disorder Questionnaire - Question 3 1 Rosalia [place] " Generalized Anxiety Disorder Questionnaire - Question 2 1 Rosalia [place] " Generalized Anxiety Disorder Questionnaire - Question 1 2 Rosalia [place] assessment of mood and affect E&M no depression, anxiety, or agitation Leilani Antwan " If any problems checked, how difficult [...] Daisy Garvey mental status assessment, judgment age-appropriate aLvern Mejia " insight (mental status exam) age-appropriate Lavern Mejia " Mental Status Exam: intelligence adequate fund of information, intact memory processes, average Lavern Mejia " hallucinations none Lavern Mejia " thought content (mental status exam) (E&M) lucid Lavern Mejia " mental status assessment, process able to [...] appropriate dress, looks like stated age, jensen Puckett Dupeire mental status assessment, judgment age-appropriate Lavern Dupeire [...] mental status assessment, sensorium alert, attentive, clear Laevrn Dupeire " affect (mental status exam) congruent, [...] appropriate dress, looks like stated age, jensen Puckett Dupeire mental status assessment, judgment age-appropriate Lavern Dupeire [...] status assessment, sensorium alert, attentive, clear Lavern Mejia " affect (mental status exam) congruent, normal intensity, normal range Lavern Mejia " mood (mental status exam) anxious, pleasant, sad Lavern Mejia " mental status assessment, speech activity normal flow, normal pace, normal pressure, normal rate, normal tone, normal volume, spontaneous Lavern Mejia " mental status assessment, motor activity normal gait, normal posture Lavern Mejia " behavior (mental status exam) appropriate, candid, cooperative, good eye contact, polite, responsive, tearful Lavern Mejia " mental appearance (mental status exam) adequate hygiene, appropriate dress, looks like stated age, neat Lavern Mejia " anxiety worry a lot, irritability, panic attacks Lavern Mejia MEDICAL EQUIPMENT No Information Available FAMILY HISTORY [...] Panel Comp. Metabolic Panel (14) TSH+Free T4 Behavioral Health - Therapy Diagnostic evaluation (no medical) - 92542 IB Assessment - Group Program Manager Est Patient Detailed - 76834 First Vx - Ix admin via ID IM or jet injects without counseling by physician Fluzone Quadrivalent IM Prefilled Syringe 0.5 mL (PF) Vaccines Ordered - Print Consent/Declination Forms Integrated Behavioral Health Assessment (IBH) Est Patient Detailed - 64285 Venipuncture Est Patient Detailed - 71869 Est Patient Detailed - 85408 BLOOD COUNT HEMOGLOBIN Spray Booth Operator Est Patient Comprehensive-16189 Est Patient Detailed - 38558 INFLUENZA VACCINE QUADRIVALENT 3 YRS PLUS IM INFLUENZA VACCINE QUADRIVALENT 3 YRS PLUS IM Spray Booth Operator Est Patient Detailed - 73199 Behavioral Health - Psychiatry Est Patient Detailed - 06268 INFLUENZA VACCINE QUADRIVALENT 3 YRS PLUS IM Est Patient Detailed - 45459 Case Mgmt Visit, Non-Billable [id number] IM or SQ Injection Est Patient Comprehensive-[id number] New Patient Complex - 66647 Spray Booth Operator Spray Booth Operator Psychotherapy 30 (16-37*) min - 92654 (with patient and/or family member) Spray Booth Operator Psychotherapy 45 (38-52*) min - 14021 (with patient and/or family member) Diagnostic evaluation (no medical) - 13163 HISTORY OF PROCEDURES Procedure Date Procedure Name Provider Procedure Notes Status Diagnostic evaluation (no medical) - 06326 Rosalia Wade completed [facility] Assessment - Group Program Manager Rosalia Wade completed First Vx - Ix admin via ID IM or jet injects without counseling by physician Leilani Moncada completed Fluzone Quadrivalent IM Prefilled Syringe 0.5 mL (PF) Leilani Moncada completed Vaccines Ordered - Print Consent/Declination Forms Leilani Moncada completed Venipuncture Leilani Moncada completed BLOOD COUNT HEMOGLOBIN Leilani Moncada completed Case Mgmt Visit, Non-Billable [id number] Lola Chou completed IM or SQ Injection Leilani Moncada pt taught to self inject 0.3cc SQ of testosterone using own supply - injected single dose completed Psychotherapy 30 (16-37*) min - 29945 (with patient and/or family member) Lavern Mejia completed Psychotherapy 45 (38-52*) min - 19582 (with patient and/or family member) Lavern Mejia completed Diagnostic evaluation (no medical) - 23131 Lavern Mejia completed GOALS No Information Available HEALTH CONCERNS No Information Available
--- OUTSIDE RECORDS SUMMARY | 2019-10-26 19:49 | XMS REPORT ---
Author Author Admin, [place] Organization Unknown Address Unknown Phone Unavailable PROBLEMS [...] Location Encounter Diagnosis - Ambulatory Encounter Rosalia Kirkland [facility] - Ambulatory Encounter Leilani Moncada [facility] Depressed mood - Ambulatory Encounter Leilani Moncada [facility] UNK - Ambulatory Encounter Rubina Robertson [facility] UNK - Ambulatory Encounter Leilani Moncada [facility] UNK - Ambulatory Encounter Leilani Moncada Rubina Mckenna [facility] Flu vaccine - Ambulatory Encounter Leilani Haynes [facility] UNK - Ambulatory Encounter Leilani Haynes [facility]illian [facility] UNK - Ambulatory Encounter Rubina Robertson [facility] UNK - Ambulatory Encounter Leilani Moncada [facility]K - Ambulatory Encounter Leilani Moncada [facility] UNK - Ambulatory Encounter Leilani Moncada [employer] Rubina Robertson [facility] UNK - Ambulatory Encounter Leilain Moncada [employer] [facility] UNK - Ambulatory Encounter Daisy Garvey [facility] UNK - Ambulatory Encounter Leilani Moncada [facility]K - Ambulatory Encounter Leilani Burroughs [facility] Screening visit for sexually trans dis - Ambulatory Encounter Leilani Moncada [facility] UNK - Ambulatory Encounter Leilani Moncada [employer] [facility] UNK - Ambulatory Encounter Deonna Bryan [facility] UNK - Ambulatory Encounter Leilani Garvey [facility] UNK - Ambulatory Encounter Leilani Moncada [facility] UNK - Ambulatory Encounter Leilani Robertson [facility] VaccinationCostochondritis, left - Ambulatory [...] [facility] - [facility]ulatory Encounter Leilani Moncada [employer] [facility] UNK - Ambulatory Encounter Leilani Moncada [employer] [facility] UNK - [facility] - Ambulatory Encounter Leilani Moncada [facility] UNK - Ambulatory Encounter Leilani Garvey [facility] Costochondritis, left - Ambulatory Encounter Leeann Fernandez [facility] UNK - Ambulatory Encounter Daisy Fernandez [facility] UNK - Ambulatory Encounter Deepak Livingston [facility] Life Skills Coordinator Volunteer UNK - Ambulatory Encounter Leilani Livingston [facility] UNK - Ambulatory Encounter Daisy Caballero [facility] UNK - Ambulatory Encounter Rubina Robertson [facility] UNK - Ambulatory Encounter Leilani Moncada [facility] UNK - Ambulatory Encounter Leilani Moncada [facility] UNK - Ambulatory Encounter Leilani WhittingtonLogkatrin [facility] UNK - Ambulatory Encounter Leilani Robertson [facility] UNK - Ambulatory Encounter Courtney Uldwig [facility] UNK - Ambulatory Encounter Courtney Ludwig [facility] UNK - Ambulatory Encounter Leilani Moncada [facility] UNK - Ambulatory Encounter Leilani Burroughs [facility] Elevated hemoglobinScreening visit for [...] UNK - Ambulatory Encounter Kristin Francois [facility] Life Skills Coordinator Volunteer UNK - Ambulatory Encounter Kristin Francois [facility] Life Skills Coordinator Volunteer UNK - Ambulatory Encounter Kristin Francois [facility] Life Skills Coordinator Volunteer UNK - Ambulatory Encounter [facility]ada [facility] UNK - Ambulatory Encounter Leilani Maki Rodrigez [facility] Exercise counselingDietary surveillance/counselingAcne vulgaris, [...] Medicine UNK - Ambulatory Encounter Steve Goode [facility] - [facility] En[facility] UNK - Ambulatory Encounter Leilani Robertson [facility] Immunization due - Ambulatory Encounter Leilani Moncada [facility] UNK - [facility] - Ambulatory Encounter Lola Leonardorix [facility] Life Skills Coordinator Volunteer UNK - Ambulatory Encounter Lola Leonardorix [facility] Life Skills Coordinator Volunteer UNK - Ambulatory Encounter Lola Leonardorix [facility] Life Skills Coordinator Volunteer UNK - Ambulatory Encounter Lola Leonardorix [facility] Life Skills Coordinator Volunteer UNK - Ambulatory Encounter Lola Leonardorix [facility] Life Skills Coordinator Volunteer UNK - Ambulatory Encounter Lola Leonardorix [facility] Life Skills Coordinator Volunteer UNK - Ambulatory Encounter Lola Leonardorix [facility] Life Skills Coordinator Volunteer UNK - Ambulatory Encounter Lola Leonardorix [facility] Life Skills Coordinator Volunteer UNK - Ambulatory Encounter Leilani Moncada [facility] UNK - Ambulatory Encounter Leilani Garvey [facility] Vitamin D deficiency - Ambulatory Encounter Leilani Moncada [facility] UNK - Ambulatory Encounter Leilani Caryselin Garvey [facility] UNK - Ambulatory Encounter Leilani Valadez [facility] UNK - Ambulatory Encounter Daisyselin Garvey [facility] UNK - Ambulatory Encounter Leilani Monte [facility] Disorder, endocrine NOStWeight gain, abnormalBMI=> 95%ile for age - Ambulatory Encounter Steve Goode [facility]K - Ambulatory Encounter Steve Goode [facility] UNK - Ambulatory Encounter Daisy Guru [facility] UNK - Ambulatory Encounter Lola Chou [facility] Life Skills Coordinator Volunteer UNK - Ambulatory Encounter Lavern Chou [facility] UNK - Ambulatory Encounter Lavern Barone [facility] UNK - Ambulatory Encounter Lola Chou [facility] Life Skills Coordinator Volunteer UNK - Ambulatory Encounter Lavern Mejia [facility] UNK - Ambulatory Encounter Lola Chou [facility] Life Skills Coordinator Volunteer UNK - Ambulatory Encounter Lola Chou [facility] UNK - Ambulatory Encounter Daisy Garvey [facility] UNK - Ambulatory Encounter Lavern Mejia [facility] UNK - Ambulatory Encounter Lavern Chou [facility] UNK - Ambulatory Encounter Anila Cerda [facility]K - Ambulatory Encounter Lavern Hunter [facility] DEPRESSIVE DISORDER, MAJOR, SINGLE EPISODE, MILDGENDER DYSPHORIA, ADOLESCENTS AND ADULTS - Ambulatory Encounter Kizzy Barone [facility] Contact Center UNK VITAL SIGNS [...] Garvey " height E&M 63.27 [in_i] Daisy Garvey " weight percentile 97 Daisy Garvey " weight in kilograms E&M 89.7 kg Daisy Garvey " weight E&M 197.34 lbs. Daisy Garvey blood pressure, diastolic 62 mm[Hg] Rubina Marcelo " blood pressure, systolic 113 mm[Hg] Rubinatopher Robertson " oxygen saturation, oximetry 97 % Rubina Robertson " pulse rate E&M 69 /min Rubina Robertson " temperature E&M 98.2 [degF] Rubina Robertson " weight percentile 93 Rubina Robertson " weight in kilograms E&M 78 kg Rubinatopher Robertson " weight E&M 171.60 lbs. Rubina Robertson " height percentile 30 Rubina Robertson " height in centimeters E&M 159.8 cm Rubinatopher Robertson " height E&M 62.91 [in_i] Rubina [...] pressure, systolic, second observation 104 mm[Hg] Leilani Moncaad " blood pressure, diastolic 76 mm[Hg] Leilani Antwan " blood pressure, systolic 104 mm[Hg] Leilani [...] " weight in kilograms E&M 98 kg Adeal Burroughs " weight E&M 215.60 lbs. Adela [...] lbs. Rubina Robertson " height percentile 32 Rubinatopher Robertson " height in centimeters E&M 160.1 cm Rubinatopher Robertson " height E&M 63.03 [in_i] Rubinatopher Robertson " method used to obtain blood pressure automatic Rubina Robertson " Blood Pressure Position 01 sitting Rubina Marcelo " blood pressure, site #1 left arm Rubinayulissa Robertson " temperature site tympanic Rubina Marcelo pulse rate E&M 71 /min Daisy Guru " temperature E&M 97.9 [degF] Daisy Garvey " blood pressure, diastolic 73 mm[Hg] Daisy Garvey " blood pressure, systolic 109 mm[Hg] Daisy Garvey " weight percentile 99 Daisy Garvey " weight in kilograms E&M 103.4 kg Daisy Garvey " weight E&M 227.48 lbs. Daisy Garvey " height percentile 32 Daisy Guru " height in centimeters E&M 160 cm Daisy Guru " height E&M 62.99 [in_i] Daisy Guru " temperature site tympanic Daisy Guru " method used to obtain blood pressure automatic Daisy Garvey " Blood Pressure Position 01 sitting Daisy Garvey " blood pressure, site #1 left arm Daisy Garvey Diastolic BP Classification - Category Normal Rubina Marcelo " Diastolic BP Percentile 82 Rubina Marcelo " Systolic BP Classification - Category Normal Rubina Marcelo " Systolic BP Percentile 47 Rubina Marcelo " pulse rate E&M 65 /min Rubina Robertson " method used to obtain blood pressure automatic Rubina Robertson " Blood Pressure Position 01 sitting Rubinatopher Robertson " blood pressure, site #1 left arm Rubina Marcelo " blood pressure, diastolic 76 mm[Hg] Rubina Marcelo " blood pressure, systolic 110 mm[Hg] Rubina Marcelo " temperature site tympanic Rubinatopher Robertson " temperature E&M 96.2 [degF] Rubina Marcelo " weight percentile 99 Rubinatopher Robertson " weight in kilograms E&M 99.7 kg Rubinatopher Robertson " weight E&M 219.34 lbs. Rubina Marcelo " height percentile 31 Rubina Marcelo " height in centimeters E&M 159.8 cm Rubinatopher Robertson " height E&M 62.91 [in_i] Rubina Marcelo pulse rate E&M 71 /min Daisy Garvey [...] LinkLogic [id number] " hematocrit, blood 43.2 % LinkLog [...] Fluzone Quadrivalent IM PF 0.5 ML [facility] [id number] Sanofi Pasteur 0.5 mL [id number] completed HISTORY OF MEDICATION USE Medication Instructions Dates Provider Comments ADAPALENE 0.1 % EXTERNAL CREAM small green Pea to face nightly Leilani Moncada EPIDUO 0.1-2.5 % EXTERNAL GEL to clean dry face nightly - Leilani Moncada BENZACLIN WITH PUMP 1-5 % EXTERNAL GEL apply to clean face every morning - Leilani Moncada VITAMIN D (ERGOCALCIFEROL) 36441 UNIT ORAL CAPSULE One tablet by mouth once per week for 12 weeks - Leilani Moncada TESTOSTERONE CYPIONATE 200 MG/ML INTRAMUSCULAR SOLUTION 0.4cc SQ weekly Leilani Moncada RETIN-A 0.025 % EXTERNAL GEL to clean dry face nightly - Leilani Moncada SOCIAL HISTORY Date Observation Value Provider drug use, illicit Never Rosalia [place] " alcohol use Never Rosalia [place] " smoking status never smoker Rosalia [place] " social history reviewed E&M reviewed today Rosaliaherson [place] " social history E&M Dating since 07/2019. [...] brother. Girlfriend also moved in. 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 Highest education level: high school graduate. 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 Works at [employer] once a week. Completed HS and has [...] sexually active, no safer sex practices. 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 Close with mom. Has 2 brothers, 18yo and 8yo, good relationships. Dad is uninvolved, text ocassionally, three additional brothers on dad's side. Parents in 2002. In extended family closest with uncle Johny. All of family are re gender identity. Has girlfriend, dating for a year but "official" for 3 months, good relationship. Rosalia Wade " home/family situation, assessment Lives with mom [...] T Adela Burroughs " Nutrition intervention T Aedla Burroughs social history reviewed E&M reviewed - [...] Garvey " Exercise Program Referral T Daisy Guru " Weight Management Counseling Provided T Daisy [...] " Weight Management Counseling Provided T Rubina Marceol " Nutrition intervention T Rubina Robertson social history reviewed E&M reviewed - no changes required Leilani Moncada " is there any chance that you could be ? No Daisy Garvey " sexual orientation Heterosexual Daisyselin Mcgowanvez " smoking status never smoker Daisy Garvey [...] social history reviewed E&M reviewed today Lavern [place]pe[place] " social history E&M Close with mom. Has 2 brothers, 14yo and 4yo. Dad is uninvolved. Parents in 2002. In extended family closest with uncle Johny. All of family aware transgender. Lives with mom and 2 brothers. Mobile home - share room with older brother. [employer] in 10th grade as of 12/25. Grades are all A's/B's. 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 Enrolling in program to get Associate's when graduating from .Wants to possibly be a master police detective then work up to [employer]. Wants to attend [employer]. Mom is a certified MA. No current partner. Never been sexually active. No involvement with CPS. Lavern Mejia" social history - sexual practice No current partner. Never been sexually active. Lavern Mejia" family support Close with mom. Has 2 brothers, 14yo and 4yo. Dad is uninvolved. Parents in 2002. In extended family closest with uncle Johny. All of family aware transgender. Lavern Mejia" home/family situation, assessment Lives with mom and 2 brothers. Mobile home - share room with older brother. Lavern Mejia FUNCTIONAL STATUS No Information Available MENTAL STATUS Date Observation Value Provider mental status assessment, judgment age-appropriate Rosalia [place] " insight (mental status exam) age-appropriate Rsoalia [place] " Mental Status Exam: intelligence adequate fund of information, intact memory processes, average Rosalia [place] " thought content (mental status exam) (E&M) lucid Rosalia [place] " mental status assessment, process able to abstract, goal-directed, logical Rosalia [place] " mental status assessment, sensorium alert, attentive, clear Rosalia [place] " affect (mental status exam) congruent, euthymic, normal intensity, normal range Rosalia [place] " mood (mental status exam) pleasant Rosalia [place] " mental status assessment, speech activity normal flow, normal pace, normal pressure, normal rate, normal tone, normal volume, spontaneous Rosalia [place] " mental status assessment, motor activity normal gait, normal posture Rosalia [place] " behavior (mental status exam) appropriate, candid, cooperative, good eye contact, polite, responsive, - Rosalia [place] " mental appearance (mental status exam) adequate hygiene, appropriate dress, looks like stated age, neat, short hair; glasses; masculine dress Rosaliaherson [place] " delusion No Rosalia [place] " hallucinations No Rosalia [place] " If any problems checked, how difficult have these problems made it for you to do your work, take care of things at home, or get along with other people (GAD7, question 8) 0 Rosalia [place] " Generalized Anxiety Disorder Questionnaire - Question 7 1 Rosalia [place] " Generalized Anxiety Disorder Questionnaire - Question 6 2 Rosalia [place] " Generalized Anxiety Disorder Questionnaire - Question 5 1 Rosalia [place] " Generalized Anxiety Disorder Questionnaire - Question 4 0 Rosalia [place] " Generalized Anxiety Disorder Questionnaire - Question 3 1 Rosalia [place] " Generalized Anxiety Disorder Questionnaire - Question 2 1 Rosalia [place] " Generalized Anxiety Disorder Questionnaire - Question 1 2 Rosalia [place] assessment of mood and affect E&M no [...] Daisy Garvey mental status assessment, judgment age-appropriate Lavern Mejia " insight (mental status exam) age-appropriate [...] process able to abstract, goal-directed, logical Lavern Mejia " mental status assessment, sensorium alert, attentive, clear Lavern Mejia " affect (mental status exam) congruent, normal intensity, normal range Lavern Haqre " mood (mental status exam) anxious, [...] - Therapy Diagnostic evaluation (no medical) - 62888 [facility] Assessment - Agronomy Manager Est Patient Detailed - 67339 First Vx - Ix admin via ID IM or jet injects without counseling by physician Fluzone Quadrivalent IM Prefilled Syringe 0.5 mL (PF) Vaccines Ordered - Print Consent/Declination Forms Integrated Behavioral Health Assessment (IBH) Est Patient Detailed - 67162 Venipuncture Est Patient Detailed - 76949 Est Patient Detailed - 87035 BLOOD COUNT HEMOGLOBIN Life Skills Coordinator Volunteer Est Patient Comprehensive-10604 Est Patient Detailed - 21995 INFLUENZA VACCINE QUADRIVALENT 3 YRS PLUS IM INFLUENZA VACCINE QUADRIVALENT 3 YRS PLUS IM Life Skills Coordinator Volunteer Est Patient Detailed - 01872 Behavioral Health - Psychiatry Est Patient Detailed - 33183 INFLUENZA VACCINE QUADRIVALENT 3 YRS PLUS IM Est Patient Detailed - 46650 Case Mgmt Visit, Non-Billable [id number] IM or SQ Injection Est Patient Comprehensive-05147 New Patient Complex - 83064 Life Skills Coordinator Volunteer Life Skills Coordinator Volunteer Psychotherapy 30 (16-37*) min - 72860 (with patient and/or family member) Life Skills Coordinator Volunteer Psychotherapy 45 (38-52*) min - 99784 (with patient and/or family member) Diagnostic evaluation (no medical) - 86004 HISTORY OF PROCEDURES Procedure Date Procedure Name Provider Procedure Notes Status Diagnostic evaluation (no medical) - 81670 Rosalia Wade completed [facility] Assessment - Agronomy Manager Rosalia Wade completed First Vx - Ix admin via ID IM or jet injects without counseling by physician Leilani Moncada completed Fluzone Quadrivalent IM Prefilled Syringe 0.5 mL (PF) Leilani Moncada completed Vaccines Ordered - Print Consent/Declination Forms Leilani Moncada completed Venipuncture Leilani Moncada completed BLOOD COUNT HEMOGLOBIN Leilani Moncada completed Case Mgmt Visit, Non-Billable [id number] Lola Chou completed IM or SQ Injection Leilani Moncada pt taught to self inject 0.3cc SQ of testosterone using own supply - injected single dose completed Psychotherapy 30 (16-37*) min - 44317 (with patient and/or family member) Lavern Mejia completed Psychotherapy 45 (38-52*) min - 27580 (with patient and/or family member) Lavern Mejia completed Diagnostic evaluation (no medical) - 74765 Lavern Mejia completed GOALS No Information Available HEALTH CONCERNS No Information Available
[2019-10-26] MEDS ORDERED: SODIUM CHLORIDE 0.9% 1000ML 1,000 ML IV STA (19:54)
[2019-10-26] MEDS ORDERED: PIPER-TAZ 3.375 GM 50 ML IV STA (19:54)
[2019-10-26 20:38] LABS: BASOPHILS # (AUTO) 0.1 (0.0-0.1); BASOPHILS % 0.6 % (0.0-1.0); EOSINOPHILS # (AUTO) 0.1 (0.0-0.4); HEMOGLOBIN 18.1 g/dL (12.0-16.0); LYMPHOCYTES # (AUTO) 3.4 (1.0-3.2); LYMPHOCYTES % 39.2 % (18.0-39.1); MEAN CORPUSCULAR HGB CONC 34.2 g/dL (31-35); MEAN CORPUSCULAR VOLUME 93.6 fL (81-99); MONOCYTES # (AUTO) 0.6 (0.2-0.8); MONOCYTES % 7.2 % (4.4-11.3); NEUTROPHILS # (AUTO) 4.5 (2.1-6.9); NEUTROPHILS % 51.5 % (38.7-80.0); PLATELET COUNT 237 x10e3/uL (140-360); RED BLOOD COUNT 5.66 x10e6/uL (3.6-5.1); RED CELL DISTRIBUTION WIDTH 11.8 % (11.7-14.4)
[2019-10-26 20:45] LABS: COLOR,URINE YELLOW (YELLOW)
[2019-10-26 20:46] LABS: BILIRUBIN,URINE NEGATIVE (NEGATIVE); CLARITY,URINE CLEAR (CLEAR); KETONES,URINE NEGATIVE (NEGATIVE); LEUKOCYTE ESTERASE ,URINE NEGATIVE (NEGATIVE); NITRITE,URINE NEGATIVE (NEGATIVE); PROTEIN,URINE DIPSTICK NEGATIVE (NEGATIVE); URINE UROBILINOGEN 0.2 mg/dL (0.2 - 1)
[2019-10-26 20:52] LABS: ALANINE AMINOTRANSFERASE 18 IU/L (0-55); ALBUMIN 4.8 g/dL (3.5-5.0); ALBUMIN/GLOBULIN RATIO 1.5 (0.8-2.0); ALKALINE PHOSPHATASE 73 IU/L (40-150); ANION GAP 16.8 mmol/L (8-16); BLOOD UREA NITROGEN 9 mg/dL (7-26); BUN/CREATININE RATIO 10 (6-25); CALCIUM 9.8 mg/dL (8.4-10.2); CARBON DIOXIDE 29 mmol/L (22-29); CHLORIDE 100 mmol/L (98-107); CREATININE, SERUM 0.91 mg/dL (0.57-1.11); EST GLOMERULAR FILTRATION RATE > 60 ML/MIN (60-); GLUCOSE 90 mg/dL (74-118); POTASSIUM 3.8 mmol/L (3.5-5.1); SODIUM 142 mmol/L (136-145)
[2019-10-26 21:00] LABS: BACTERIA,URINE FEW /HPF; EPITHELIAL CELLS,URINE FEW /LPF; RBC,URINE 0-5 /HPF (0-5)
--- NOTE | 2019-10-26 22:00 | Diagnostic Imaging Report ---
EXAM: CT Abdomen and Pelvis WITHOUT contrast INDICATION: Back pain COMPARISON: None. TECHNIQUE: Abdomen and pelvis were scanned utilizing a multidetector helical scanner from the lung base to the pubic symphysis without administration of IV contrast. Absence of intravenous contrast decreases sensitivity for detection of focal lesions and vascular pathology. Coronal and sagittal reformations were obtained. Routine protocol was performed. IV CONTRAST: None ORAL CONTRAST: None COMPLICATIONS: None RADIATION DOSE: Total DLP: 700 mGy*cm Estimated effective dose: (DLP x 0.015 x size factor) mSv CTDIvol has been reviewed. It is below the limits set by the Radiation Protocol Committee (RPC). Dose modulation, iterative reconstruction, and/or weight based adjustment of the mA/kV was utilized to reduce the radiation dose to as low as reasonably achievable. FINDINGS: LINES and TUBES: None. LOWER THORAX: Unremarkable HEPATOBILIARY: No focal hepatic lesions. No biliary ductal dilation. GALLBLADDER: No radio-opaque stones or sludge. No wall thickening. SPLEEN: No splenomegaly. PANCREAS: No focal masses or ductal dilatation. ADRENALS: No adrenal nodules KIDNEYS/URETERS: No hydronephrosis. No cystic or solid mass lesions. No stones. Duplex left kidney and ureters. GI TRACT: No abnormal distention, wall thickening, or evidence of bowel obstruction. There are post surgical changes of appendectomy. PELVIC ORGANS/BLADDER: Unremarkable. LYMPH NODES: No lymphadenopathy. VESSELS: Unremarkable. PERITONEUM / RETROPERITONEUM: No free air or fluid. BONES: Unremarkable. SOFT TISSUES: Subtle focal nodularity in the bilateral lower anterior abdominal subcutaneous adipose. IMPRESSION: No acute abnormality within the abdominopelvic cavity on this noncontrast CT. Subtle focal nodularity in the bilateral lower anterior abdominal subcutaneous adipose may be scarring/inflammatory changes or due to injections. Signed by: Danyel Ibrahim DO on 10/26/2019 9:57 PM
--- NOTE | 2019-10-26 22:01 | Diagnostic Imaging Report ---
EXAMINATION: CHEST 2 VIEWS INDICATION: Back pain, numbness COMPARISON: None FINDINGS: TUBES and LINES: None. LUNGS: Normal lung volumes. Lungs are clear. No consolidations. PLEURA: No pleural effusion or pneumothorax. HEART AND MEDIASTINUM: The cardiomediastinal silhouette is unremarkable. BONES AND SOFT TISSUES: No acute osseous lesion. Soft tissues are unremarkable. UPPER ABDOMEN: No free air under the diaphragm. IMPRESSION: No acute thoracic radiographic abnormality. Signed by: Danyel Ibrahim DO on 10/26/2019 9:58 PM
== END 2019-10-26 22:51 | disposition home or self-care (01) ==
LOC: ER 19:43 → EDSEX 19:43 → ER 22:51
DX: M54.5 Low back pain (principal); R10.12 Left upper quadrant pain; R10.32 Left lower quadrant pain
CPT/HCPCS: 36415; 71046; 74176; 80053; 81001; 81025; 83605; 85025; 87040; 87400; 99283; J2543; J7030